=== PATIENT | male | born 1990 | race Caucasian/White ===

== ENCOUNTER 2019-03-29 16:26 | Emergency (ER) | payer OTHER ==
[2016-06-05 11:45] VITALS: BP 139/84
[2019-03-29] MEDS ORDERED: ONDANSETRON PF 4 MG/2 ML VIAL. IV ONE (17:00)
[2019-03-29] MEDS ORDERED: HYDROcodone/APAP 5/325MG 1 TAB TABLET PO ONE (17:00)
--- NOTE | 2019-03-29 21:58 | RAD ---
HAND LEFT 3V History: LEFT HAND PAIN AFTER FALL X4 DAYS AGO. No evidence of acute fracture. Joint spaces are intact. There is no evidence of dislocation. The lunate bone is small and fragmented, suggesting osteonecrosis or Kienbock's disease. There is ulnar minus. 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 No evidence of acute fracture or dislocation. Electronically signed by: Lupillo Samano MD (03/29/2019 9:55 PM) [facility]
== END 2019-03-29 18:55 | disposition home or self-care (01) ==
LOC: ER 16:26
DX: S62.122A Displaced fracture of lunate [semilunar], left wrist, initial encounter for closed fracture (principal); R06.2 Wheezing; R00.2 Palpitations; R30.0 Dysuria; R63.4 Abnormal weight loss; R35.0 Frequency of micturition; R51 Headache; R11.2 Nausea with vomiting, unspecified; R19.7 Diarrhea, unspecified; R06.02 Shortness of breath; R07.89 Other chest pain; R50.9 Fever, unspecified; X58.XXXA Exposure to other specified factors, initial encounter; Y93.89 Activity, other specified; Y92.89 Other specified places as the place of occurrence of the external cause; Y99.8 Other external cause status
CPT/HCPCS: 29125; 73130; 99284; J2405

== ENCOUNTER 2019-12-12 16:28 | Inpatient (IN) | payer SELFPAY ==
[~2019-12-12] VITALS: Ht 188 cm; Wt 115.7 kg
[2019-12-12 15:53] VITALS: BP 144/72
[2019-12-12] MEDS ORDERED: DEXTROSE 50% 25 GM / 50ML DISP.SYRIN. IV PRN (17:15)
[2019-12-12] MEDS ORDERED: IV DEXTROSE 5% 250 ML BAG. IV PRN (17:15)
[2019-12-12] MEDS ORDERED: ACETAMINOPHEN 325 MG TABLET. PO PRN (17:15)
[2019-12-12] MEDS ORDERED: ONDANSETRON PF 4 MG/2 ML VIAL. IVP PRN (17:15)
[2019-12-12] MEDS: NICOTINE 21MG PATCH. TD SCH (17:27)
[2019-12-12] MEDS ORDERED: glyBURIDE 5 MG TABLET PO SCH (17:30)
[2019-12-12] MEDS ORDERED: PIP/TAZO PER PHARMACY MC PRN (17:45)
[2019-12-12] MEDS: VANCOMYCIN PER PHARMACY MC PRN ×2 (17:48→17:55)
--- NOTE | 2019-12-12 17:51 | NUR ---
Pharmacy Vancomycin Dosing Note S:Consulted to monitor and dose vancomycin started 12/12/19. O:MIRELES IV,RADHA is a 29 year old M with Abd abscess. Height: 6 feet, 2 inches Weight: 115.7 kg Maxwell Body Weight: 82.20 Adjusted Body Weight: 95.72 Dosing Weight: Actual Other Antibiotics: zosyn LABS: Last BUN: 6 ([facility]) Last Creatinine: 0.7 ([facility]) Creatinine Clearance: >100 mL/min Last WBC: 11.8 ([facility]) Last Procalcitonin: Tmax (past 24 hours): 97.8 Vancomycin Dosing: Loading Dose: 2000 mg x1 Dosing Weight: Actual Target Trough: 15-20 A: Based on: weight and renal function P: 1. Begin Vancomycin 1500 mg IV q8h 2. Follow up Trough level on 12/13/19 at 2030 3. Pharmacy will continue to monitor, follow and adjust therapy as needed. Beatris Faye RPH, 12/12/19 0910
[2019-12-12] MEDS ORDERED: VANCOMYCIN 2 GM in IV NORMAL SALINE 500ML BAG 500 ML IV ONE (18:00)
[2019-12-12] MEDS ORDERED: INSULIN LISPRO 300 UNITS/3 ML VIAL. SQ SCH (18:00)
[2019-12-12] MEDS: metFORMIN 500 MG TABLET PO SCH (18:02)
[2019-12-12] MEDS: PIPERACILLIN/TAZOBACTAM 3.375 GM in IV NORMAL SALINE 50ML 50 ML IV SCH ×2 (18:03→23:56)
[2019-12-12 19:00] VITALS: BP 118/79
[2019-12-12] MEDS ORDERED: INSULIN GLARGINE SYRINGE. SQ SCH (21:00)
[2019-12-12] MEDS: LACTOBACILLUS RHAMNOSUS GG 1 CAPSULE. PO SCH (21:21)
[2019-12-12] MEDS: GABAPENTIN 300 MG CAPSULE. PO SCH (21:21)
[2019-12-12 23:00] VITALS: BP 137/81
[2019-12-13] MEDS: HYDROcodone/APAP 5/325MG 1 TAB TABLET PO PRN ×4 (00:01→23:13)
[2019-12-13 03:00] VITALS: BP 122/80
[2019-12-13] MEDS: VANCOMYCIN 1.5 GM in IV NORMAL SALINE 500ML BAG 500 ML IV SCH ×2 (04:12→15:16)
[2019-12-13 05:11] LABS: BASO % 0 % (0-3); EOS # 0.2 x10^3/uL (0.0-0.7); EOS % 2 % (0-3); HEMATOCRIT 46.2 % (39.0-53.0); HEMOGLOBIN 15.5 g/dL (13.0-17.5); LYMPH # 3.8 x10^3/uL (1.0-4.8); LYMPH % 35 % (24-48); MEAN CORPUSCULAR HEMOGLOBIN 29 pg (25-35); MEAN CORPUSCULAR HGB CONC 34 g/dL (31-37); MEAN CORPUSCULAR VOLUME 88 fL (79-100); MONO # 0.8 x10^3/uL (0.0-1.1); MONO % 7 % (0-9); NEUT % 55 % (31-73); PLATELET COUNT 272 x10^3/uL (140-400); RED BLOOD COUNT 5.27 x10^6/uL (4.30-5.70); RED CELL DISTRIBUTION WIDTH 13.4 % (11.5-14.5); WHITE BLOOD COUNT 10.8 x10^3/uL (4.0-11.0)
[2019-12-13 05:40] LABS: ALBUMIN 2.9 g/dL (3.4-5.0); ALBUMIN/GLOBULIN RATIO 0.8 (1.0-1.7); CREATININE 0.6 mg/dL (0.7-1.3); GFR 157.1; POTASSIUM 3.2 mmol/L (3.5-5.1); TOTAL BILIRUBIN 0.4 mg/dL (0.2-1.0); TOTAL PROTEIN 6.5 g/dL (6.4-8.2)
[2019-12-13] MEDS: PIPERACILLIN/TAZOBACTAM 3.375 GM in IV NORMAL SALINE 50ML 50 ML IV SCH ×3 (06:08→17:31)
[2019-12-13 07:00] VITALS: BP 125/77
[2019-12-13] MEDS ORDERED: INSULIN GLARGINE SYRINGE. SQ SCH (08:00)
[2019-12-13] MEDS: metFORMIN 500 MG TABLET PO SCH ×2 (08:00→17:04)
[2019-12-13] MEDS ORDERED: DEXTROSE 50% 25 GM / 50ML DISP.SYRIN. IV PRN (08:30)
[2019-12-13] MEDS ORDERED: POTASSIUM CHLORIDE 20 MEQ TABLET.ER. PO ONE (08:30)
[2019-12-13] MEDS ORDERED: IV DEXTROSE 5% 250 ML BAG. IV PRN (08:30)
--- NOTE | 2019-12-13 08:33 | PDOC2 ---
PRABUH PERRY PHARM TECH 12/13/19 0833: CONSULT Date of Consult Date of Consult DATE: 12/13/19 TIME: 08:28 Reason for Consult Reason for Consult: abscess Referring Physician Referring Physician: Dr Major Identification/Chief Complaint Chief Complaint abscess Source Source: Chart review, Patient History of Present Illness Reason for Visit: Admitted at [facility] with DKA--required insulin drip. New onset DM in last few week s. With all of that he has had a draining abdominal wound start. It will drain intermittently. While at [facility] US showed abscess. Tx for surgical eval Past Medical History Endocrine: Diabetes Past Surgical History Past Surgical History: No pertinent history Family History Family History: Cancer, Hypertension Social History 1 pack per day ALCOHOL: occassional Drugs: Marijuana Lives: Alone Current Medications Current Medications Current Medications Insulin Glargine (Lantus Syringe) 20 unit QHS SQ Last administered on 12/12/19at 21:30; Start 12/12/19 at 21:00 Insulin Human Lispro (HumaLOG) 0-5 UNITS TIDWMEALS SQ Last administered on 12/12/19at 18:47; Start 12/12/19 at 18:00 Dextrose (Dextrose 50%-Water Syringe) 12.5 gm PRN Q15MIN PRN IV SEE COMMENTS; Start 12/12/19 at 17:15 Dextrose (Iv Dextrose 5%) 250 ml PRN Q15MIN PRN IV SEE COMMENTS; Start 12/12/19 at 17:15 Gabapentin (Neurontin) 300 mg TID PO Last administered on 12/12/19at 21:21; Start 12/12/19 at 21:00 Acetaminophen/ Hydrocodone Bitart (Lortab 5/325) 1 tab PRN Q6HRS PRN PO MODERATE PAIN Last administered on 12/13/19at 00:01; Start 12/12/19 at 17:15 Insulin Glargine (Lantus Syringe) 10 unit DAILY08 SQ ; Start 12/13/19 at 08:00 Lactobacillus Rhamnosus (Culturelle) 1 cap BID PO Last administered on 12/12/19at 21:21; Start 12/12/19 at 21:00 Nicotine (Nicoderm Cq 21mg) 1 patch DAILY TD ; Start 12/12/19 at 17:30 Glyburide (Diabeta) 5 mg BIDWMEALS PO Last administered on 12/12/19at 18:02; Start 12/12/19 at 17:30 Metformin HCl (Glucophage) 500 mg BIDWMEALS PO Last administered on 12/12/19at 18:02; Start 12/12/19 at 17:30 Acetaminophen (Tylenol) 650 mg PRN Q4HRS PRN PO MILD PAIN / TEMP; Start 12/12 at 17:15 Ondansetron HCl (Zofran) 4 mg PRN Q4HRS PRN IVP NAUSEA/VOMITING; Start 12/12/19 at 17:15 Piperacillin Sod/ Tazobactam Sod 3.375 gm/Sodium Chloride 50 ml @ 100 mls/hr Q6HRS IV Last administered on 12/13/19at 06:08; Start 12/12/19 at 18:00 Piperacillin Sod/ Tazobactam Sod (Zosyn Per Pharmacy) 1 each PRN DAILY PRN MC SEE COMMENTS; Start 12/12/19 at 17:45 Vancomycin HCl (Vanco Per Pharmacy) 1 each PRN DAILY PRN MC SEE COMMENTS Last administered on 12/12/19at 17:55; Start 12/12/19 at 17:45 Vancomycin HCl 2 gm/Sodium Chloride 500 ml @ 250 mls/hr 1X ONCE IV Last administered on 12/12/19at 18:05; Start 12/12/19 at 18:00; Stop 12/12/19 at 19:59; Status DC Vancomycin HCl 1.5 gm/Sodium Chloride 500 ml @ 250 mls/hr Q8H IV Last administered on 12/13/19at 04:12; Start 12/13/19 at 05:00 Vancomycin HCl (Vancomycin Trough Level) 1 each 1X ONCE MC ; Start 12/13/19 at 20:30; Stop 12/13/19 at 20:31 Active Scripts Active No Active Prescriptions or Reported Medications Allergies Allergies: Coded Allergies: No Known Drug Allergies (Unverified , 12/13/19) ROS General: No: Chills, Other (fevers ) PSYCHOLOGICAL ROS: No: Anxiety, Depression Eyes: No Blurry vision, No Loss of vision Hematological and Lymphatic: No: Bleeding Problems, Blood Clots Respiratory: No: Cough, Shortness of breath Cardiovascular: No Chest Pain, No Palpitations Gastrointestinal: No Nausea, No Vomiting Genitourinary: No Dysuria, No Hematuria Musculoskeletal: No Joint Pain, No Muscle Pain Neurological: No Impaired Coord/balance, No Numbness/Tingling Skin: Yes Other (see hpi) Physical Exam General: Alert, Oriented X3, Cooperative HEENT: Atraumatic, PERRLA Lungs: Clear to auscultation, Normal air movement Heart: Regular rate, Normal S1, Normal S2 Abdomen: Soft, Other (noted lower abdomen with pinpoint opening, area of induration palpated and able to express purulent drainage, tender to palpation ) Extremities: No clubbing, No cyanosis Neuro: Normal speech, Sensation intact Psych/Mental Status: Mental status NL, Mood NL MUSCULOSKELETAL: No deformity, No swelling Vitals VITALS Vital Signs Date Time Temp Pulse Resp B/P (MAP) Pulse Ox O2 Delivery O2 Flow Rate FiO2 12/13/19 07:00 98.0 77 17 125/77 (93) 99 Room Air 98.0 Labs Labs Laboratory Tests Test 12/12/19 16:06 12/12/19 20:36 12/13/19 04:20 12/13/19 07:29 Glucose (Fingerstick) 279 mg/dL (70-99) 296 mg/dL (70-99) 280 mg/dL (70-99) White Blood Count 10.8 x10^3/uL (4.0-11.0) Red Blood Count 5.27 x10^6/uL (4.30-5.70) Hemoglobin 15.5 g/dL (13.0-17.5) Hematocrit 46.2 % (39.0-53.0) Mean Corpuscular Volume 88 fL (79-100) Mean Corpuscular Hemoglobin 29 pg (25-35) Mean Corpuscular Hemoglobin Concent 34 g/dL (31-37) Red Cell Distribution Width 13.4 % (11.5-14.5) Platelet Count 272 x10^3/uL (140-400) Neutrophils (%) (Auto) 55 % (31-73) Lymphocytes (%) (Auto) 35 % (24-48) Monocytes (%) (Auto) 7 % (0-9) Eosinophils (%) (Auto) 2 % (0-3) Basophils (%) (Auto) 0 % (0-3) Neutrophils # (Auto) 6.0 x10^3/uL (1.8-7.7) Lymphocytes # (Auto) 3.8 x10^3/uL (1.0-4.8) Monocytes # (Auto) 0.8 x10^3/uL (0.0-1.1) Eosinophils # (Auto) 0.2 x10^3/uL (0.0-0.7) Basophils # (Auto) 0.0 x10^3/uL (0.0-0.2) Sodium Level 139 mmol/L (136-145) Potassium Level 3.2 mmol/L (3.5-5.1) Chloride Level 100 mmol/L (98-107) Carbon Dioxide Level 30 mmol/L (21-32) Anion Gap 9 (6-14) Blood Urea Nitrogen 9 mg/dL (8-26) Creatinine 0.6 mg/dL (0.7-1.3) Estimated GFR (Cockcroft-Gault) 157.1 BUN/Creatinine Ratio 15 (6-20) Glucose Level 290 mg/dL (70-99) Calcium Level 9.0 mg/dL (8.5-10.1) Total Bilirubin 0.4 mg/dL (0.2-1.0) Aspartate Amino Transf (AST/SGOT) 9 U/L (15-37) Alanine Aminotransferase (ALT/SGPT) 12 U/L (16-63) Alkaline Phosphatase 85 U/L (46-116) Total Protein 6.5 g/dL (6.4-8.2) Albumin 2.9 g/dL (3.4-5.0) Albumin/Globulin Ratio 0.8 (1.0-1.7) Laboratory Tests Test 12/12/19 16:06 12/12/19 20:36 12/13/19 04:20 12/13/19 07:29 Glucose (Fingerstick) 279 mg/dL (70-99) 296 mg/dL (70-99) 280 mg/dL (70-99) White Blood Count 10.8 x10^3/uL (4.0-11.0) Red Blood Count 5.27 x10^6/uL (4.30-5.70) Hemoglobin 15.5 g/dL (13.0-17.5) Hematocrit 46.2 % (39.0-53.0) Mean Corpuscular Volume 88 fL (79-100) Mean Corpuscular Hemoglobin 29 pg (25-35) Mean Corpuscular Hemoglobin Concent 34 g/dL (31-37) Red Cell Distribution Width 13.4 % (11.5-14.5) Platelet Count 272 x10^3/uL (140-400) Neutrophils (%) (Auto) 55 % (31-73) Lymphocytes (%) (Auto) 35 % (24-48) Monocytes (%) (Auto) 7 % (0-9) Eosinophils (%) (Auto) 2 % (0-3) Basophils (%) (Auto) 0 % (0-3) Neutrophils # (Auto) 6.0 x10^3/uL (1.8-7.7) Lymphocytes # (Auto) 3.8 x10^3/uL (1.0-4.8) Monocytes # (Auto) 0.8 x10^3/uL (0.0-1.1) Eosinophils # (Auto) 0.2 x10^3/uL (0.0-0.7) Basophils # (Auto) 0.0 x10^3/uL (0.0-0.2) Sodium Level 139 mmol/L (136-145) Potassium Level 3.2 mmol/L (3.5-5.1) Chloride Level 100 mmol/L (98-107) Carbon Dioxide Level 30 mmol/L (21-32) Anion Gap 9 (6-14) Blood Urea Nitrogen 9 mg/dL (8-26) Creatinine 0.6 mg/dL (0.7-1.3) Estimated GFR (Cockcroft-Gault) 157.1 BUN/Creatinine Ratio 15 (6-20) Glucose Level 290 mg/dL (70-99) Calcium Level 9.0 mg/dL (8.5-10.1) Total Bilirubin 0.4 mg/dL (0.2-1.0) Aspartate Amino Transf (AST/SGOT) 9 U/L (15-37) Alanine Aminotransferase (ALT/SGPT) 12 U/L (16-63) Alkaline Phosphatase 85 U/L (46-116) Total Protein 6.5 g/dL (6.4-8.2) Albumin 2.9 g/dL (3.4-5.0) Albumin/Globulin Ratio 0.8 (1.0-1.7) Assessment/Plan Assessment/Plan abdominal abscess DM will review with Dr Barnhart--appears to need formal I&D in OR LINDA BARNHART MD 12/13/19 1227: CONSULT Assessment/Plan Assessment/Plan Pt seen and examined by myself; newly diagnosed diabetes, treated at [facility], detected lower abdominal wall abscess; he reports having them in the past but never as extensive. PMH/PSH/ROS/SH as above; exam: alert, oriented, multiple tattoos, lungs clear, heart RR and R, abdomen obese, area of induration, drainage in LLQ, ext without deformity or edema. A/P) LLQ subQ abscess, plan for I and D in the OR. PRABHU PERRY APRN Dec 13, 2019 08:33 LINDA BARNHART MD Dec 13, 2019 15:57
[2019-12-13] MEDS: INSULIN LISPRO 300 UNITS/3 ML VIAL. SQ SCH ×5 (08:45→17:09)
[2019-12-13] MEDS ORDERED: INSULIN GLARGINE SYRINGE. SQ ONE (08:45)
[2019-12-13] MEDS: GABAPENTIN 300 MG CAPSULE. PO SCH ×3 (09:00→20:33)
[2019-12-13] MEDS: LACTOBACILLUS RHAMNOSUS GG 1 CAPSULE. PO SCH ×2 (09:00→20:33)
[2019-12-13] MEDS ORDERED: IV RINGERS,LACTATED 1000ML 1,000 ML IV SCH (09:03)
[2019-12-13] MEDS ORDERED: fentaNYL PF VIAL 100 MCG/2 ML VIAL IV PRN (09:15)
[2019-12-13] MEDS ORDERED: ONDANSETRON PF 4 MG/2 ML VIAL. IV PRN (09:15)
[2019-12-13] MEDS ORDERED: HYDROmorphone 2 MG/ML VIAL IV PRN (09:15)
[2019-12-13 11:01] VITALS: BP 128/74
--- NOTE | 2019-12-13 11:19 | CONS ---
DATE OF CONSULTATION: 12/13/2019 REFERRING PHYSICIAN: Licha Major MD REASON FOR CONSULTATION: Abscess. HISTORY OF PRESENT ILLNESS: A 29-year-old male who presented to [facility] on 12/10/2019 with increased urinary frequency, thirst and dizziness. He presented from his primary care office where he was found to have high blood sugar at the office. He is newly diagnosed with diabetes. He also had multiple boils along the lower abdomen. He had leukocytosis. Blood sugars were very elevated with glycosuria. Lactate was normal. He denied any fevers or chills. He denied being on any antibiotics prior to admission. He was given Keflex, vancomycin and a dose of Zosyn. He underwent ultrasound of the abdomen, which showed nonspecific complex collection in the area of concern would correspond with clinically suspected abscess and sinus tract about a 4.1 x 3.4 x 2.5 cm in size. The patient is transferred to [facility] for surgical intervention. He is currently on vancomycin and Zosyn. ID consult has been requested for antibiotic management. Repeat white count is normal here. Blood sugar still remains high. Creatinine has normalized to 0.6 with normal bicarbonate. Blood cultures were done at [facility], which are pending at this time. Today, the patient is going for surgical I and D. He denies any fevers, chills, nausea, vomiting, diarrhea, or abdominal pain. Denies any symptoms. Feels he is getting better. PAST MEDICAL HISTORY: Newly diagnosed diabetes. CURRENT MEDICATIONS: Vancomycin and Zosyn, reviewed. ALLERGIES: No known drug allergies. SOCIAL HISTORY: Denies smoking, ETOH. Works as a logging truck driver. Denies any drug use. PHYSICAL EXAMINATION: VITAL SIGNS: Temperature 98.6, pulse 88, respiratory rate 18, blood pressure 137/81, oxygen saturation 97% on room air. GENERAL: Alert and oriented x 3, pleasant male lying in bed comfortably, in no acute distress. HEENT: Normocephalic, atraumatic. Anicteric. No thrush. NECK: Supple, no JVD. LUNGS: Clear bilaterally. No wheezing. HEART: S1, S2. No gallops or murmurs. ABDOMEN: Soft, nontender, nondistended. No rebound or guarding. Suprapubic area, there is an area of induration with 2 sinus tracts. No purulence noted. Tenderness present. No overlying warmth. No surrounding cellulitis. EXTREMITIES: No edema, no cyanosis. DERMATOLOGIC: Warm and dry. No generalized rash. Multiple tattoos in both upper and lower extremities. No other skin wounds noted. CENTRAL NERVOUS SYSTEM: Alert and oriented x 3, grossly nonfocal. LABORATORY DATA: WBC 10.8, was 17,000; hemoglobin 15.5; hematocrit 46.2; platelets 272. Sodium 139, potassium 3.2, chloride 100, bicarb 30, BUN 9, creatinine 0.6. Glucose is 290. LFTs within normal limits. Albumin 2.9. Blood cultures, none here. ESR is pending at this time. IMAGING: None here. Ultrasound from [facility] shows abscess. IMPRESSION: 1. Draining abdominal wound with underlying abscess, awaiting I and D. 2. Diabetes mellitus, newly diagnosed. 3. Leukocytosis. 4. Hyperglycemia. 5. Hypokalemia. RECOMMENDATIONS: 1. Continue IV vancomycin and Zosyn. 2. Follow up blood cultures from [facility]. 3. Send intraoperative cultures. 4. Follow up labs in a.m. 5. Continue supportive care. 6. Wound care per General Surgery. 7. Optimal diabetes control. Thank you for consulting Infectious Disease to participate in this patient's care. If you have any questions, do not hesitate to contact me. KRYSTAL ABDALLA MD DR: XVAIER/verena JOB#: [id number] / [id number] MARTA
--- NOTE | 2019-12-13 11:32 | NUR ---
SW following. Discussed with RN, pt is from home, I & D today, DIANE haywood and rob. [facility] following for self pay status. SW will continue to follow.
[2019-12-13] MEDS ORDERED: ONDANSETRON PF 4 MG/2 ML VIAL. ONE (11:48)
[2019-12-13] MEDS ORDERED: LIDOCAINE 2% PF 5 ML VIAL. ONE (11:48)
[2019-12-13] MEDS ORDERED: DEXAMETHASONE SOD PHOS 4 MG/ML VIAL ONE (11:48)
[2019-12-13] MEDS ORDERED: PROPOFOL 20 ML IV ONE ×2 (11:48→13:50)
[2019-12-13] MEDS ORDERED: fentaNYL PF VIAL 100 MCG/2 ML VIAL ONE ×2 (11:49→14:02)
[2019-12-13 12:06] LABS: PROTHROMBIN TIME PATIENT 12.5 SEC (11.7-14.0)
[2019-12-13] MEDS: VANCOMYCIN PER PHARMACY MC PRN ×2 (12:28→22:33)
[2019-12-13] MEDS ORDERED: LIDOCAINE 1%/EPI 1:100,000 20 ML VIAL. ONE (13:16)
--- NOTE | 2019-12-13 13:25 | PDOC1 ---
History and Physical Date of Admission Date of Admission DATE: 12/13/19 TIME: 13:21 Identification/Chief Complaint Chief Complaint transfer from [facility] [place] abscess that has a sinus tract Source Source: Caregiver, Chart review, Patient History of Present Illness History of Present Illness 29 male, dw Dr Caldwell over phone, transferred from [facility] with sinus tract formation, HE was admitted there 3-4days ago (thursday), getting IV abx but interval CT shows the above so transferred here for GS, ID also consulted HE ALSO IS A NEW DM, with BS > 600s at [place] on arrival,. Thats is much better controlled now Seen by GS and mentions more drainage plans tmr by GS BAseline labs show normal WBC and afebrile Past Medical History Cardiovascular: No pertinent hx Pulmonary: No pertinent hx GI: No pertinent hx Heme/Onc: No pertinent hx Hepatobiliary: No pertinent hx Psych: No pertinent hx Rheumatologic: No pertinent hx Infectious disease: No pertinent hx ENT: No pertinent hx Endocrine: Diabetes Past Surgical History Past Surgical History: No pertinent history Family History Family History: Cancer, Hypertension Social History Smoke: 1 pack per day ALCOHOL: occassional Drugs: Marijuana Current Medications Current Medications Current Medications Insulin Glargine (Lantus Syringe) 20 unit QHS SQ Last administered on 12/12/19at 21:30; Start 12/12/19 at 21:00; Stop 12/13/19 at 08:29; Status DC Insulin Human Lispro (HumaLOG) 0-5 UNITS TIDWMEALS SQ Last administered on 12/12/19at 18:47; Start 12/12/19 at 18:00; Stop 12/13/19 at 08:29; Status DC Dextrose (Dextrose 50%-Water Syringe) 12.5 gm PRN Q15MIN PRN IV SEE COMMENTS; Start 12/12/19 at 17:15; Stop 12/13/19 at 12:19; Status DC Dextrose (Iv Dextrose 5%) 250 ml PRN Q15MIN PRN IV SEE COMMENTS; Start 12/12/19 at 17:15; Stop 12/13/19 at 12:19; Status DC Gabapentin (Neurontin) 300 mg TID PO Last administered on 12/12/19at 21:21; Start 12/12/19 at 21:00 Acetaminophen/ Hydrocodone Bitart (Lortab 5/325) 1 tab PRN Q6HRS PRN PO MODERATE PAIN Last administered on 12/13/19at 09:42; Start 12/12/19 at 17:15 Insulin Glargine (Lantus Syringe) 10 unit DAILY08 SQ ; Start 12/13/19 at 08:00; Stop 12/13/19 at 08:29; Status DC Lactobacillus Rhamnosus (Culturelle) 1 cap BID PO Last administered on 12/12/19at 21:21; Start 12/12/19 at 21:00 Nicotine (Nicoderm Cq 21mg) 1 patch DAILY TD ; Start 12/12/19 at 17:30 Glyburide (Diabeta) 5 mg BIDWMEALS PO Last administered on 12/12/19at 18:02; Start 12/12/19 at 17:30; Stop 12/13/19 at 08:29; Status DC Metformin HCl (Glucophage) 500 mg BIDWMEALS PO Last administered on 12/12/19at 18:02; Start 12/12/19 at 17:30 Acetaminophen (Tylenol) 650 mg PRN Q4HRS PRN PO MILD PAIN / TEMP; Start 12/12/19 at 17:15 Ondansetron HCl (Zofran) 4 mg PRN Q4HRS PRN IVP NAUSEA/VOMITING; Start 12/12/19 at 17:15 Piperacillin Sod/ Tazobactam Sod 3.375 gm/Sodium Chloride 50 ml @ 100 mls/hr Q6HRS IV Last administered on 12/13/19at 06:08; Start 12/12/19 at 18:00 Piperacillin Sod/ Tazobactam Sod (Zosyn Per Pharmacy) 1 each PRN DAILY PRN MC SEE COMMENTS; Start 12/12/19 at 17:45 Vancomycin HCl (Vanco Per Pharmacy) 1 each PRN DAILY PRN MC SEE COMMENTS Last administered on 12/13/19at 12:28; Start 12/12/19 at 17:45 Vancomycin HCl 2 gm/Sodium Chloride 500 ml @ 250 mls/hr 1X ONCE IV Last administered on 12/12/19at 18:05; Start 12/12/19 at 18:00; Stop 12/12/19 at 19:59; Status DC Vancomycin HCl 1.5 gm/Sodium Chloride 500 ml @ 250 mls/hr Q8H IV Last administered on 12/13/19at 04:12; Start 12/13/19 at 05:00 Vancomycin HCl (Vancomycin Trough Level) 1 each 1X ONCE MC ; Start 12/13/19 at 20:30; Stop 12/13/19 at 20:31 Insulin Glargine (Lantus Syringe) 30 unit QHS SQ ; Start 12/14/19 at 21:00 Insulin Human Lispro (HumaLOG) 0-9 UNITS TIDWMEALS SQ Last administered on 12/13/19at 12:52; Start 12/13/19 at 12:00 Dextrose (Dextrose 50%-Water Syringe) 12.5 gm PRN Q15MIN PRN IV SEE COMMENTS; Start 12/13/19 at 08:30 Dextrose (Iv Dextrose 5%) 250 ml PRN Q15MIN PRN IV SEE COMMENTS; Start 12/13/19 at 08:30 Potassium Chloride (Klor-Con) 40 meq 1X ONCE PO ; Start 12/13/19 at 08:30; Stop 12/13/19 at 08:33; Status DC Insulin Human Lispro (HumaLOG) 10 units TIDWMEALS SQ ; Start 12/13/19 at 08:45 Insulin Glargine (Lantus Syringe) 30 unit 1X ONCE SQ Last administered on 12/13/19at 09:47; Start 12/13/19 at 08:45; Stop 12/13/19 at 08:46; Status DC Ondansetron HCl (Zofran) 4 mg PRN Q6HRS PRN IV NAUSEA/VOMITING; Start 12/13/19 at 09:15; Stop 12/14/19 at 09:14 Fentanyl Citrate (Fentanyl 2ml Vial) 25 mcg PRN Q5MIN PRN IV MILD PAIN 1-3; Start 12/13/19 at 09:15; Stop 12/14/19 at 09:14 Fentanyl Citrate (Fentanyl 2ml Vial) 50 mcg PRN Q5MIN PRN IV MODERATE TO SEVERE PAIN; Start 12/13/19 at 09:15; Stop 12/14/19 at 09:14 Morphine Sulfate (Morphine Sulfate) 1 mg PRN Q10MIN PRN IV SEVERE PAIN 7-10; Start 12/13/19 at 09:15; Stop 12/14/19 at 09:14 Ringer's Solution 1,000 ml @ 30 mls/hr Q24H IV Last administered on 12/13/19at 11:29; Start 12/13/19 at 09:03; Stop 12/13/19 at 21:02 Hydromorphone HCl (Dilaudid) 0.5 mg PRN Q10MIN PRN IV SEV PAIN, Second choice; Start 12/13/19 at 09:15; Stop 12/14/19 at 09:14 Prochlorperazine Edisylate (Compazine) 5 mg PACU PRN PRN IV NAUSEA, MRX1; Sta rt 12/13/19 at 09:15; Stop 12/14/19 at 09:14 Propofol 20 ml @ As Directed STK-MED ONCE IV ; Start 12/13/19 at 11:48; Stop 12/13/19 at 11:49; Status DC Lidocaine HCl (Lidocaine Pf 2% Vial) 5 ml STK-MED ONCE .ROUTE ; Start 12/13/19 at 11:48; Stop 12/13/19 at 11:49; Status DC Dexamethasone Sodium Phosphate (Decadron) 4 mg STK-MED ONCE .ROUTE ; Start 12/13/19 at 11:48; Stop 12/13/19 at 11:49; Status DC Ondansetron HCl (Zofran) 4 mg STK-MED ONCE .ROUTE ; Start 12/13/19 at 11:48; Stop 12/13/19 at 11:49; Status DC Fentanyl Citrate (Fentanyl 2ml Vial) 100 mcg STK-MED ONCE .ROUTE ; Start 12/13/19 at 11:49; Stop 12/13/19 at 11:49; Status DC Lidocaine/ Epinephrine (LIDOCAINE 1%-EPI 1:100,000 Multi-Dose) 20 ml STK-MED ONCE .ROUTE ; Start 12/13/19 at 13:16; Stop 12/13/19 at 13:17; Status DC Active Scripts Active No Active Prescriptions or Reported Medications Allergies Allergies: Coded Allergies: No Known Drug Allergies (Unverified , 06/03/16) ROS Review of System moderate lower abd dc, all esle 14 pt neg no efvers Physical Exam General: Alert, Oriented X3, Cooperative, No acute distress HEENT: Atraumatic, PERRLA, EOMI Lungs: Clear to auscultation, Normal air movement Heart: S1S2, RRR, no thrills, no rubs, no gallops, no murmurs Cardiovascular: S1, S2 Abdomen: Soft, No tenderness, No hepatosplenomegaly, Other (wet dressing lower abd area but no /hard to see open skin lesion, nontender, not distended) Rectal Exam: not examined PELVIC: Nml ext genitalia Extremities: No clubbing, No cyanosis, No edema, Normal pulses, No tenderness/swelling Skin: No rashes Neuro: Normal gait, Normal speech, Strength at 5/5 X4 ext, Normal tone, Sensation intact, Cranial nerves 3-12 NL, Reflexes 2+ Psych/Mental Status: Mental status NL, Mood NL Vitals Vitals Vital Signs Date Time Temp Pulse Resp B/P (MAP) Pulse Ox O2 Delivery O2 Flow Rate FiO2 12/13/19 11:11 98 89 18 130/80 95 Room Air 98.0 Labs Labs Laboratory Tests Test 12/12/19 16:06 12/12/19 20:36 12/13/19 04:20 12/13/19 07:29 Glucose (Fingerstick) 279 mg/dL (70-99) 296 mg/dL (70-99) 280 mg/dL (70-99) White Blood Count 10.8 x10^3/uL (4.0-11.0) Red Blood Count 5.27 x10^6/uL (4.30-5.70) Hemoglobin 15.5 g/dL (13.0-17.5) Hematocrit 46.2 % (39.0-53.0) Mean Corpuscular Volume 88 fL (79-100) Mean Corpuscular Hemoglobin 29 pg (25-35) Mean Corpuscular Hemoglobin Concent 34 g/dL (31-37) Red Cell Distribution Width 13.4 % (11.5-14.5) Platelet Count 272 x10^3/uL (140-400) Neutrophils (%) (Auto) 55 % (31-73) Lymphocytes (%) (Auto) 35 % (24-48) Monocytes (%) (Auto) 7 % (0-9) Eosinophils (%) (Auto) 2 % (0-3) Basophils (%) (Auto) 0 % (0-3) Neutrophils # (Auto) 6.0 x10^3/uL (1.8-7.7) Lymphocytes # (Auto) 3.8 x10^3/uL (1.0-4.8) Monocytes # (Auto) 0.8 x10^3/uL (0.0-1.1) Eosinophils # (Auto) 0.2 x10^3/uL (0.0-0.7) Basophils # (Auto) 0.0 x10^3/uL (0.0-0.2) Sodium Level 139 mmol/L (136-145) Potassium Level 3.2 mmol/L (3.5-5.1) Chloride Level 100 mmol/L (98-107) Carbon Dioxide Level 30 mmol/L (21-32) Anion Gap 9 (6-14) Blood Urea Nitrogen 9 mg/dL (8-26) Creatinine 0.6 mg/dL (0.7-1.3) Estimated GFR (Cockcroft-Gault) 157.1 BUN/Creatinine Ratio 15 (6-20) Glucose Level 290 mg/dL (70-99) Calcium Level 9.0 mg/dL (8.5-10.1) Total Bilirubin 0.4 mg/dL (0.2-1.0) Aspartate Amino Transf (AST/SGOT) 9 U/L (15-37) Alanine Aminotransferase (ALT/SGPT) 12 U/L (16-63) Alkaline Phosphatase 85 U/L (46-116) Total Protein 6.5 g/dL (6.4-8.2) Albumin 2.9 g/dL (3.4-5.0) Albumin/Globulin Ratio 0.8 (1.0-1.7) Test 12/13/19 10:25 12/13/19 11:36 12/13/19 12:41 12/13/19 12:47 Prothrombin Time 12.5 SEC (11.7-14.0) Prothromb Time International Ratio 1.0 (0.8-1.1) Glucose (Fingerstick) 265 mg/dL (70-99) 288 mg/dL (70-99) 283 mg/dL (70-99) Laboratory Tests Test 12/12/19 16:06 12/12/19 20:36 12/13/19 04:20 12/13/19 07:29 Glucose (Fingerstick) 279 mg/dL (70-99) 296 mg/dL (70-99) 280 mg/dL (70-99) White Blood Count 10.8 x10^3/uL (4.0-11.0) Red Blood Count 5.27 x10^6/uL (4.30-5.70) Hemoglobin 15.5 g/dL (13.0-17.5) Hematocrit 46.2 % (39.0-53.0) Mean Corpuscular Volume 88 fL (79-100) Mean Corpuscular Hemoglobin 29 pg (25-35) Mean Corpuscular Hemoglobin Concent 34 g/dL (31-37) Red Cell Distribution Width 13.4 % (11.5-14.5) Platelet Count 272 x10^3/uL (140-400) Neutrophils (%) (Auto) 55 % (31-73) Lymphocytes (%) (Auto) 35 % (24-48) Monocytes (%) (Auto) 7 % (0-9) Eosinophils (%) (Auto) 2 % (0-3) Basophils (%) (Auto) 0 % (0-3) Neutrophils # (Auto) 6.0 x10^3/uL (1.8-7.7) Lymphocytes # (Auto) 3.8 x10^3/uL (1.0-4.8) Monocytes # (Auto) 0.8 x10^3/uL (0.0-1.1) Eosinophils # (Auto) 0.2 x10^3/uL (0.0-0.7) Basophils # (Auto) 0.0 x10^3/uL (0.0-0.2) Sodium Level 139 mmol/L (136-145) Potassium Level 3.2 mmol/L (3.5-5.1) Chloride Level 100 mmol/L (98-107) Carbon Dioxide Level 30 mmol/L (21-32) Anion Gap 9 (6-14) Blood Urea Nitrogen 9 mg/dL (8-26) Creatinine 0.6 mg/dL (0.7-1.3) Estimated GFR (Cockcroft-Gault) 157.1 BUN/Creatinine Ratio 15 (6-20) Glucose Level 290 mg/dL (70-99) Calcium Level 9.0 mg/dL (8.5-10.1) Total Bilirubin 0.4 mg/dL (0.2-1.0) Aspartate Amino Transf (AST/SGOT) 9 U/L (15-37) Alanine Aminotransferase (ALT/SGPT) 12 U/L (16-63) Alkaline Phosphatase 85 U/L (46-116) Total Protein 6.5 g/dL (6.4-8.2) Albumin 2.9 g/dL (3.4-5.0) Albumin/Globulin Ratio 0.8 (1.0-1.7) Test 12/13/19 10:25 12/13/19 11:36 12/13/19 12:41 12/13/19 12:47 Prothrombin Time 12.5 SEC (11.7-14.0) Prothromb Time International Ratio 1.0 (0.8-1.1) Glucose (Fingerstick) 265 mg/dL (70-99) 288 mg/dL (70-99) 283 mg/dL (70-99) VTE Prophylaxis Ordered VTE Prophylaxis Devices: Yes VTE Pharmacological Prophylaxi: Yes Assessment/Plan Assessment/Plan abd abscess with sinus tract formation NEw DM PLAn: See my orders re insulin regimen - 30 qhs, 10 TID plus metformin Check hgba1c DM education NPO post MN, surgical drrainge plans by GS tmr COnsult ID Add esr Add PT.INR ADA diet today ANGEL SHELTON MD Dec 13, 2019 13:25
[2019-12-13] MEDS ORDERED: SEVOFLURANE 31 TO 60 MINUTES. IH ONE (14:05)
[2019-12-13] MEDS: fentaNYL PF VIAL 100 MCG/2 ML VIAL IV PRN ×2 (14:34→15:03)
[2019-12-13] MEDS ORDERED: INSULIN LISPRO 100 UNIT/ML 3ML VIAL for OP,RR ONLY. SQ PRN (14:45)
[2019-12-13] MEDS ORDERED: MORPHINE SULFATE 4 MG/ML VIAL. IV ONE (14:45)
[2019-12-13] MEDS: PROCHLORPERAZINE 10 MG/2 ML VIAL. IV PRN ×2 (14:47→15:02)
[2019-12-13] MEDS: MORPHINE SULFATE 2 MG/ML VIAL. IV PRN ×2 (15:29→15:52)
--- NOTE | 2019-12-13 16:01 | PDOC4 ---
Operative Note Operative Note Operative Note: Preoperative Diagnosis: Left lower quadrant abdominal abscess Postoperative Diagnosis: Same Procedure: Incision and drainage of left lower quadrant abscess Surgeon: Obey Anesthesia: Gen. EBL: 10 mL Specimen: Cultures to microbiology Drains: None Complications: None Indication: The patient is a 29-year-old male who was recently diagnosed with diabetes. He was found on examination to have a left lower quadrant abscess. He was will require incision and drainage in the operating room. The risks of surgery were discussed which include bleeding, infection, recurrence, pain, scar tissue, anesthetic risk, potential need for additional surgery or procedure. He understands and would like to proceed. Description: The patient was taken to the operating room and placed supine on the operating table. Gen. anesthesia was performed. The abdomen was prepped with ChloraPrep and draped in a standard surgical manner. An incision was made in the skin with the scalpel overlying the fluctuant area. There was immediate return of purulent fluid. Cultures were obtained and sent to microbiology. Incision was extended to facilitate drainage. The abscess cavity was then digitally probed to free up any loculations. The entire base was then irrigated with sterile saline. Hemostasis was achieved with cautery. The wound was then packed with sterile gauze and a dressing was applied. The patient tolerated the procedure well and was sent to the recovery room in stable condition. At the end of the case all counts were correct. LINDA HARRINGTON MD Dec 13, 2019 16:00
[2019-12-13] MEDS: NICOTINE 21MG PATCH. TD SCH (17:04)
[2019-12-13 19:00] VITALS: BP 134/86
[2019-12-13 21:19] LABS: VANC TR 9.1 mcg/mL (10.0-20.0)
[2019-12-13] MEDS: VANCOMYCIN 1.75 GM in IV NORMAL SALINE 500ML BAG 500 ML IV SCH (21:52)
--- NOTE | 2019-12-13 22:34 | NUR ---
Pharmacy Vancomycin Dosing Note S: Consulted to monitor and dose vancomycin started 12/12/19. O: MIRELES IV,RADHA is a 29 year old M with , Abd abscess . Other Antibiotics: zosyn LABS: Last BUN: 9 Last Creatinine: 0.6 Creatinine Clearance: >200 mL/min Last WBC: 10.8 Last Procalcitonin: Tmax (past 24 hours): 98.6 Microbiology: I/O: 1900/ 7 VOIDS Drug Levels: Last Trough level: 9.1 on 12/13/19 at 2045 Last dose given 12/13/19 at 1516 Vancomycin Dosing: Dosing Weight: Actual Target Trough: 15-20 A: Based on: Trough, Actual Wt and CrCl P: 1. 12/13/19 2200 Increase Vancomycin 1750 mg IV q8h 2. Follow up Trough level on 12/14/19 at 2130 3. Pharmacy will continue to monitor, follow and adjust therapy as needed. SUZANNA KRAUSE RPH, [id number] Signed: 12/13/19 at 223 by SUZANNA KRAUSE RPH PHA
[2019-12-13 23:00] VITALS: BP 136/80
[2019-12-14] MEDS: MORPHINE SULFATE 2 MG/ML VIAL. IV PRN ×4 (00:03→14:48)
[2019-12-14] MEDS: PIPERACILLIN/TAZOBACTAM 3.375 GM in IV NORMAL SALINE 50ML 50 ML IV SCH ×4 (00:04→17:35)
[2019-12-14 00:07] LABS: HEMOGLOBIN A1C 10.8 % (4.8-5.6)
[2019-12-14 03:00] VITALS: BP 148/63
[2019-12-14 05:20] LABS: CREATININE 0.6 mg/dL (0.7-1.3); GFR 157.1; POTASSIUM 3.7 mmol/L (3.5-5.1)
[2019-12-14] MEDS: VANCOMYCIN 1.75 GM in IV NORMAL SALINE 500ML BAG 500 ML IV SCH ×3 (06:10→22:12)
[2019-12-14 07:00] VITALS: BP 132/91
[2019-12-14] MEDS: HYDROcodone/APAP 5/325MG 1 TAB TABLET PO PRN ×2 (08:21→14:47)
[2019-12-14] MEDS: metFORMIN 500 MG TABLET PO SCH ×2 (08:22→17:03)
[2019-12-14] MEDS: LACTOBACILLUS RHAMNOSUS GG 1 CAPSULE. PO SCH ×2 (08:22→21:27)
[2019-12-14] MEDS: GABAPENTIN 300 MG CAPSULE. PO SCH ×3 (08:23→21:28)
[2019-12-14] MEDS: INSULIN LISPRO 300 UNITS/3 ML VIAL. SQ SCH ×6 (08:25→17:06)
--- NOTE | 2019-12-14 09:23 | PDOC ---
Infectious Disease Note Subjective: Subjective pt says feels better abdo pain is improving slowly no f/c/n/v/d Vital Signs: Vital Signs Vital Signs Date Time Temp Pulse Resp B/P (MAP) Pulse Ox O2 Delivery O2 Flow Rate FiO2 12/14/19 08:21 Room Air 12/14/19 07:00 98.0 82 16 132/91 (105) 95 98.0 12/13/19 14:34 10.0 Physical Exam: PHYSICAL EXAM GENERAL: Alert and oriented x 3, pleasant male lying in bed comfortably, in no acute distress. HEENT: Normocephalic, atraumatic. Anicteric. No thrush. NECK: Supple, no JVD. LUNGS: Clear bilaterally. No wheezing. HEART: S1, S2. No gallops or murmurs. ABDOMEN: Soft, nontender, nondistended. No rebound or guarding. Suprapubic area dressing in place, dry intact Tenderness present. No overlying warmth. No surrounding cellulitis. EXTREMITIES: No edema, no cyanosis. DERMATOLOGIC: Warm and dry. No generalized rash. Multiple tattoos in both upper and lower extremities. No other skin wounds noted. CENTRAL NERVOUS SYSTEM: Alert and oriented x 3, grossly nonfocal. Medications: Inpatient Meds: Current Medications Medications (Trade) Dose Ordered Sig/[facility] Start Time Stop Time Status Last Admin Dose Admin Acetaminophen (Tylenol) 650 mg PRN Q4HRS PRN 12/12/19 17:15 Acetaminophen/ Hydrocodone Bitart (Lortab 5/325) 1 tab PRN Q6HRS PRN 12/12/19 17:15 12/14/19 08:21 1 TAB Dexamethasone Sodium Phosphate (Decadron) 4 mg STK-MED ONCE 12/13/19 11:48 12/13/19 11:49 DC Dextrose (Dextrose 50%-Water Syringe) 12.5 gm PRN Q15MIN PRN 12/13/19 08:30 Dextrose (Iv Dextrose 5%) 250 ml PRN Q15MIN PRN 12/13/19 08:30 Fentanyl Citrate (Fentanyl 2ml Vial) 100 mcg STK-MED ONCE 12/13/19 14:02 12/13/19 14:02 DC Gabapentin (Neurontin) 300 mg TID 12/12/19 21:00 12/14/19 08:23 300 MG Glyburide (Diabeta) 5 mg BIDWMEALS 12/12/19 17:30 12/13/19 08:29 DC 12/12/19 18:02 5 MG Hydromorphone HCl (Dilaudid) 0.5 mg PRN Q10MIN PRN 12/13/19 09:15 12/14/19 09:14 DC Insulin Glargine (Lantus Syringe) 30 unit 1X ONCE 12/13/19 08:45 12/13/19 08:46 DC 12/13/19 09:47 30 UNIT Insulin Human Lispro (HumaLOG VIAL for OP,RR ONLY) 0-10 units PRN Q1HR PRN 12/13/19 14:45 12/14/19 14:44 12/13/19 15:26 6 UNIT Insulin Human Lispro (HumaLOG) 10 units TIDWMEALS 12/13/19 08:45 12/14/19 08:25 10 UNITS Lactobacillus Rhamnosus (Culturelle) 1 cap BID 12/12/19 21:00 12/14/19 08:22 1 CAP Lidocaine HCl (Lidocaine Pf 2% Vial) 5 ml STK-MED ONCE 12/13/19 11:48 12/13/19 11:49 DC Lidocaine/ Epinephrine (LIDOCAINE 1%-EPI 1:100,000 Multi-Dose) 20 ml STK-MED ONCE 12/13/19 13:16 12/13/19 13:17 DC Metformin HCl (Glucophage) 500 mg BIDWMEALS 12/12/19 17:30 12/14/19 08:22 500 MG Morphine Sulfate (Morphine Sulfate) 1 mg PRN Q4HRS PRN 12/13/19 23:30 12/14/19 05:28 1 MG Nicotine (Nicoderm Cq 21mg) 1 patch DAILY 12/12/19 17:30 12/13/19 17:04 1 PATCH Ondansetron HCl (Zofran) 4 mg STK-MED ONCE 12/13/19 11:48 12/13/19 11:49 DC Piperacillin Sod/ Tazobactam Sod (Zosyn Per Pharmacy) 1 each PRN DAILY PRN 12/12/19 17:45 Piperacillin Sod/ Tazobactam Sod 3.375 gm/Sodium Chloride 50 ml @ 100 mls/hr Q6HRS 12/12/19 18:00 12/14/19 05:30 100 MLS/HR Potassium Chloride (Klor-Con) 40 meq 1X ONCE 12/13/19 08:30 12/13/19 08:33 DC 12/13/19 17:03 40 MEQ Prochlorperazine Edisylate (Compazine) 5 mg PACU PRN PRN 12/13/19 09:15 12/14/19 09:14 DC 12/13/19 15:02 5 MG Propofol 20 ml @ As Directed STK-MED ONCE 12/13/19 13:50 12/13/19 13:50 DC Ringer's Solution 1,000 ml @ 30 mls/hr Q24H 12/13/19 09:03 12/13/19 21:02 DC 12/13/19 11:29 30 MLS/HR Sevoflurane (Ultane) 30 ml STK-MED ONCE 12/13/19 14:05 12/13/19 14:06 DC Vancomycin HCl (Vanco Per Pharmacy) 1 each PRN DAILY PRN 12/12/19 17:45 12/13/19 22:33 1 EACH Vancomycin HCl (Vancomycin Trough Level) 1 each 1X ONCE 12/14/19 21:30 12/14/19 21:31 Vancomycin HCl 1.5 gm/Sodium Chloride 500 ml @ 250 mls/hr Q8H 12/13/19 05:00 12/13/19 21:35 DC 12/13/19 15:16 250 MLS/HR Vancomycin HCl 1.75 gm/Sodium Chloride 500 ml @ 250 mls/hr Q8H 12/13/19 22:00 12/14/19 06:10 250 MLS/HR Vancomycin HCl 2 gm/Sodium Chloride 500 ml @ 250 mls/hr 1X ONCE 12/12/19 18:00 12/12/19 19:59 DC 12/12/19 18:05 250 MLS/HR Labs: Lab Laboratory Tests Test 12/13/19 10:25 12/13/19 11:36 12/13/19 12:41 12/13/19 12:47 Erythrocyte Sedimentation Rate 12 (0-15) Prothrombin Time 12.5 SEC (11.7-14.0) Prothromb Time International Ratio 1.0 (0.8-1.1) Hemoglobin A1c 10.8 % (4.8-5.6) Glucose (Fingerstick) 265 mg/dL (70-99) 288 mg/dL (70-99) 283 mg/dL (70-99) Test 12/13/19 15:09 12/13/19 16:33 12/13/19 20:45 12/13/19 20:50 Glucose (Fingerstick) 211 mg/dL (70-99) 210 mg/dL (70-99) 260 mg/dL (70-99) Vancomycin Level Trough 9.1 mcg/mL (10.0-20.0) Vancomycin Last Dose Date 12/13/19 Vancomycin Last Dose Time 1300 Test 12/14/19 04:50 Sodium Level 138 mmol/L (136-145) Potassium Level 3.7 mmol/L (3.5-5.1) Chloride Level 100 mmol/L (98-107) Carbon Dioxide Level 29 mmol/L (21-32) Anion Gap 9 (6-14) Blood Urea Nitrogen 9 mg/dL (8-26) Creatinine 0.6 mg/dL (0.7-1.3) Estimated GFR (Cockcroft-Gault) 157.1 Glucose Level 275 mg/dL (70-99) Calcium Level 9.0 mg/dL (8.5-10.1) Objective: Assessment: 1. Draining abdominal wound with underlying abscess, 12/13 s/p Incision and drainage of left lower quadrant abscess 2. Diabetes mellitus, newly diagnosed. 3. Leukocytosis. 4. Hyperglycemia. 5. Hypokalemia. Plan: Plan of Care 1. Continue IV vancomycin and Zosyn. 2. Follow up blood cultures from [facility]. 3. f/u intraoperative cultures. 4. Follow up labs in a.m. 5. Continue supportive care. 6. Wound care per General Surgery. 7. Optimal diabetes control. KRYSTAL ABDALLA MD Dec 14, 2019 09:23
[2019-12-14 11:00] VITALS: BP 150/79
--- NOTE | 2019-12-14 11:09 | PDOC ---
PROGRESS NOTES Chief Complaint Chief Complaint transferred from [facility] of abd abscess with sinus tract formation, HE was admitted there 3-4days ago (thursday), getting IV abx but interval CT shows the above so transferred here for GS, History of Present Illness History of Present Illness VTE Prophylaxis Ordered VTE Prophylaxis Devices: Yes VTE Pharmacological Prophylaxi: Yes Assessment/Plan Assessment/Plan abd abscess with sinus tract formation suspected abscess and sinus tract about a 4.1 x 3.4 x 2.5 cm in size. NEw onset DM PLAn: insulin regimen - 30 qhs lantus , 10 TID plus metformin hgba1c DM education surgical drrainge plans by GS reviewed COnsult ID esr=[id number] PT.INR 12/14 post-op pain, slow to resolve Operative Note Operative Note 12/13 Operative Note Operative Note: Preoperative Diagnosis: Left lower quadrant abdominal abscess Postoperative Diagnosis: Same Procedure: Incision and drainage of left lower quadrant abscess Surgeon: Obey Anesthesia: Gen. EBL: 10 mL Specimen: Cultures to microbiology Drains: None Complications: None Indication: The patient is a 29-year-old male who was recently diagnosed with diabetes. He was found on examination to have a left lower quadrant abscess. He was will require incision and drainage in the operating room. Vitals Vitals Vital Signs Date Time Temp Pulse Resp B/P (MAP) Pulse Ox O2 Delivery O2 Flow Rate FiO2 12/14/19 10:40 Room Air 12/14/19 07:00 98.0 82 16 132/91 (105) 95 98.0 12/13/19 14:34 10.0 Physical Exam Physical Exam GENERAL: Alert and oriented x 3, pleasant male lying in bed comfortably, in no acute distress. HEENT: Normocephalic, atraumatic. Anicteric. No thrush. NECK: Supple, no JVD. LUNGS: Clear bilaterally. No wheezing. HEART: S1, S2. No gallops or murmurs. ABDOMEN: Soft, nontender, nondistended. No rebound or guarding. Suprapubic area dressing in place, dry intact Tenderness present. No overlying warmth. No surrounding cellulitis. EXTREMITIES: No edema, no cyanosis. DERMATOLOGIC: Warm and dry. No generalized rash. Multiple tattoos in both upper and lower extremities. No other skin wounds noted. CENTRAL NERVOUS SYSTEM: Alert and oriented x 3, grossly nonfocal. General: Alert, Oriented X3, Cooperative, No acute distress Heart: Regular rate, Normal S1, Normal S2 Lungs: Clear Abdomen: Soft, No tenderness, No hepatosplenomegaly, Other (wet dressing lower abd area but no /hard to see open skin lesion, nontender, not distended) Extremities: No clubbing, No cyanosis, No edema, Normal pulses, No tenderness/swelling Skin: No rashes Labs LABS SPEC #: [id number] ALBINO: 12/13/19140 STATUS: RES REQ #: [id number] RECD: 12/13/[address] [facility] [address]: ANGEL SHELTON MD SOURCE: ABDOMEN ENTR: 12/13/[address]: CAROL CARVALHO [facility]ESS KRYSTAL ABDALLA MD, STEPHEN J MD ORDERED: ANAER/AEROB/ANNALEE COMMENTS: LEFT LOWER ABDOMINAL ABSCESS Procedure Result ANAEROBIC-AEROBIC CULTURE PENDING ANAEROBIC RES 1 PENDING AEROBIC CULT PENDING AEROBIC RES 1 PENDING GRAM STAIN Final Final report GRAM STAIN RES 1 Final Comment No white blood cells seen. GRAM STAIN RES 2 Final No organisms seen Performed at: [facility], [place], [place] [id number] Vice President Media Relations: ARTI Oh MD, Phone: [phone] Laboratory Tests Test 12/13/19 11:36 12/13/19 12:41 12/13/19 12:47 12/13/19 15:09 Glucose (Fingerstick) 265 mg/dL (70-99) 288 mg/dL (70-99) 283 mg/dL (70-99) 211 mg/dL (70-99) Test 12/13/19 16:33 12/13/19 20:45 12/13/19 20:50 12/14/19 04:50 Glucose (Fingerstick) 210 mg/dL (70-99) 260 mg/dL (70-99) Vancomycin Level Trough 9.1 mcg/mL (10.0-20.0) Vancomycin Last Dose Date 12/13/19 Vancomycin Last Dose Time 1300 Sodium Level 138 mmol/L (136-145) Potassium Level 3.7 mmol/L (3.5-5.1) Chloride Level 100 mmol/L (98-107) Carbon Dioxide Level 29 mmol/L (21-32) Anion Gap 9 (6-14) Blood Urea Nitrogen 9 mg/dL (8-26) Creatinine 0.6 mg/dL (0.7-1.3) Estimated GFR (Cockcroft-Gault) 157.1 Glucose Level 275 mg/dL (70-99) Calcium Level 9.0 mg/dL (8.5-10.1) Comment Review of Relevant I have reviewed the following items vargas (where applicable) has been applied. Labs Laboratory Tests Test 12/12/19 16:06 12/12/19 20:36 12/13/19 04:20 12/13/19 07:29 Glucose (Fingerstick) 279 mg/dL (70-99) 296 mg/dL (70-99) 280 mg/dL (70-99) White Blood Count 10.8 x10^3/uL (4.0-11.0) Red Blood Count 5.27 x10^6/uL (4.30-5.70) Hemoglobin 15.5 g/dL (13.0-17.5) Hematocrit 46.2 % (39.0-53.0) Mean Corpuscular Volume 88 fL (79-100) Mean Corpuscular Hemoglobin 29 pg (25-35) Mean Corpuscular Hemoglobin Concent 34 g/dL (31-37) Red Cell Distribution Width 13.4 % (11.5-14.5) Platelet Count 272 x10^3/uL (140-400) Neutrophils (%) (Auto) 55 % (31-73) Lymphocytes (%) (Auto) 35 % (24-48) Monocytes (%) (Auto) 7 % (0-9) Eosinophils (%) (Auto) 2 % (0-3) Basophils (%) (Auto) 0 % (0-3) Neutrophils # (Auto) 6.0 x10^3/uL (1.8-7.7) Lymphocytes # (Auto) 3.8 x10^3/uL (1.0-4.8) Monocytes # (Auto) 0.8 x10^3/uL (0.0-1.1) Eosinophils # (Auto) 0.2 x10^3/uL (0.0-0.7) Basophils # (Auto) 0.0 x10^3/uL (0.0-0.2) Sodium Level 139 mmol/L (136-145) Potassium Level 3.2 mmol/L (3.5-5.1) Chloride Level 100 mmol/L (98-107) Carbon Dioxide Level 30 mmol/L (21-32) Anion Gap 9 (6-14) Blood Urea Nitrogen 9 mg/dL (8-26) Creatinine 0.6 mg/dL (0.7-1.3) Estimated GFR (Cockcroft-Gault) 157.1 BUN/Creatinine Ratio 15 (6-20) Glucose Level 290 mg/dL (70-99) Calcium Level 9.0 mg/dL (8.5-10.1) Total Bilirubin 0.4 mg/dL (0.2-1.0) Aspartate Amino Transf (AST/SGOT) 9 U/L (15-37) Alanine Aminotransferase (ALT/SGPT) 12 U/L (16-63) Alkaline Phosphatase 85 U/L (46-116) Total Protein 6.5 g/dL (6.4-8.2) Albumin 2.9 g/dL (3.4-5.0) Albumin/Globulin Ratio 0.8 (1.0-1.7) Test 12/13/19 10:25 12/13/19 11:36 12/13/19 12:41 12/13/19 12:47 Erythrocyte Sedimentation Rate 12 (0-15) Prothrombin Time 12.5 SEC (11.7-14.0) Prothromb Time International Ratio 1.0 (0.8-1.1) Hemoglobin A1c 10.8 % (4.8-5.6) Glucose (Fingerstick) 265 mg/dL (70-99) 288 mg/dL (70-99) 283 mg/dL (70-99) Test 12/13/19 15:09 12/13/19 16:33 12/13/19 20:45 12/13/19 20:50 Glucose (Fingerstick) 211 mg/dL (70-99) 210 mg/dL (70-99) 260 mg/dL (70-99) Vancomycin Level Trough 9.1 mcg/mL (10.0-20.0) Vancomycin Last Dose Date 12/13/19 Vancomycin Last Dose Time 1300 Test 12/14/19 04:50 Sodium Level 138 mmol/L (136-145) Potassium Level 3.7 mmol/L (3.5-5.1) Chloride Level 100 mmol/L (98-107) Carbon Dioxide Level 29 mmol/L (21-32) Anion Gap 9 (6-14) Blood Urea Nitrogen 9 mg/dL (8-26) Creatinine 0.6 mg/dL (0.7-1.3) Estimated GFR (Cockcroft-Gault) 157.1 Glucose Level 275 mg/dL (70-99) Calcium Level 9.0 mg/dL (8.5-10.1) Laboratory Tests Test 12/13/19 11:36 12/13/19 12:41 12/13/19 12:47 12/13/19 15:09 Glucose (Fingerstick) 265 mg/dL (70-99) 288 mg/dL (70-99) 283 mg/dL (70-99) 211 mg/dL (70-99) Test 12/13/19 16:33 12/13/19 20:45 12/13/19 20:50 12/14/19 04:50 Glucose (Fingerstick) 210 mg/dL (70-99) 260 mg/dL (70-99) Vancomycin Level Trough 9.1 mcg/mL (10.0-20.0) Vancomycin Last Dose Date 12/13/19 Vancomycin Last Dose Time 1300 Sodium Level 138 mmol/L (136-145) Potassium Level 3.7 mmol/L (3.5-5.1) Chloride Level 100 mmol/L (98-107) Carbon Dioxide Level 29 mmol/L (21-32) Anion Gap 9 (6-14) Blood Urea Nitrogen 9 mg/dL (8-26) Creatinine 0.6 mg/dL (0.7-1.3) Estimated GFR (Cockcroft-Gault) 157.1 Glucose Level 275 mg/dL (70-99) Calcium Level 9.0 mg/dL (8.5-10.1) Medications Current Medications Insulin Glargine (Lantus Syringe) 20 unit QHS SQ Last administered on 12/12/19at 21:30; Start 12/12/19 at 21:00; Stop 12/13/19 at 08:29; Status DC Insulin Human Lispro (HumaLOG) 0-5 UNITS TIDWMEALS SQ Last administered on 12/12/19at 18:47; Start 12/12/19 at 18:00; Stop 12/13/19 at 08:29; Status DC Dextrose (Dextrose 50%-Water Syringe) 12.5 gm PRN Q15MIN PRN IV SEE COMMENTS; Start 12/12/19 at 17:15; Stop 12/13/19 at 12:19; Status DC Dextrose (Iv Dextrose 5%) 250 ml PRN Q15MIN PRN IV SEE COMMENTS; Start 12/12/19 at 17:15; Stop 12/13/19 at 12:19; Status DC Gabapentin (Neurontin) 300 mg TID PO Last administered on 12/14/19at 08:23; Start 12/12/19 at 21:00 Acetaminophen/ Hydrocodone Bitart (Lortab 5/325) 1 tab PRN Q6HRS PRN PO MODERATE PAIN Last administered on 12/14/19at 08:21; Start 12/12/19 at 17:15 Insulin Glargine (Lantus Syringe) 10 unit DAILY08 SQ ; Start 12/13/19 at 08:00; Stop 12/13/19 at 08:29; Status DC Lactobacillus Rhamnosus (Culturelle) 1 cap BID PO Last administered on 12/14/19at 08:22; Start 12/12/19 at 21:00 Nicotine (Nicoderm Cq 21mg) 1 patch DAILY TD Last administered on 12/13/19at 17:04; Start 12/12/19 at 17:30 Glyburide (Diabeta) 5 mg BIDWMEALS PO Last administered on 12/12/19at 18:02; Start 12/12/19 at 17:30; Stop 12/13/19 at 08:29; Status DC Metformin HCl (Glucophage) 500 mg BIDWMEALS PO Last administered on 12/14/19at 08:22; Start 12/12/19 at 17:30 Acetaminophen (Tylenol) 650 mg PRN Q4HRS PRN PO MILD PAIN / TEMP; Start 12/12/19 at 17:15 Ondansetron HCl (Zofran) 4 mg PRN Q4HRS PRN IVP NAUSEA/VOMITING; Start 12/12/19 at 17:15 Piperacillin Sod/ Tazobactam Sod 3.375 gm/Sodium Chloride 50 ml @ 100 mls/hr Q6HRS IV Last administered on 12/14/19at 05:30; Start 12/12/19 at 18:00 Piperacillin Sod/ Tazobactam Sod (Zosyn Per Pharmacy) 1 each PRN DAILY PRN MC SEE COMMENTS; Start 12/12/19 at 17:45 Vancomycin HCl (Vanco Per Pharmacy) 1 each PRN DAILY PRN MC SEE COMMENTS Last administered on 12/13/19at 22:33; Start 12/12/19 at 17:45 Vancomycin HCl 2 gm/Sodium Chloride 500 ml @ 250 mls/hr 1X ONCE IV Last administered on 12/12/19at 18:05; Start 12/12/19 at 18:00; Stop 12/12/19 at 19:59; Status DC Vancomycin HCl 1.5 gm/Sodium Chloride 500 ml @ 250 mls/hr Q8H IV Last administered on 12/13/19at 15:16; Start 12/13/19 at 05:00; Stop 12/13/19 at 21:35; Status DC Vancomycin HCl (Vancomycin Trough Level) 1 each 1X ONCE MC Last administered on 12/13/19at 21:32; Start 12/13/19 at 20:30; Stop 12/13/19 at 20:31; Status DC Insulin Glargine (Lantus Syringe) 30 unit QHS SQ ; Start 12/14/19 at 21:00 Insulin Human Lispro (HumaLOG) 0-9 UNITS TIDWMEALS SQ Last administered on 12/14/19at 08:25; Start 12/13/19 at 12:00 Dextrose (Dextrose 50%-Water Syringe) 12.5 gm PRN Q15MIN PRN IV SEE COMMENTS; Start 12/13/19 at 08:30 Dextrose (Iv Dextrose 5%) 250 ml PRN Q15MIN PRN IV SEE COMMENTS; Start 12/13/19 at 08:30 Potassium Chloride (Klor-Con) 40 meq 1X ONCE PO Last administered on 12/13/19at 17:03; Start 12/13/19 at 08:30; Stop 12/13/19 at 08:33; Status DC Insulin Human Lispro (HumaLOG) 10 units TIDWMEALS SQ Last administered on 12/14/19at 08:25; Start 12/13/19 at 08:45 Insulin Glargine (Lantus Syringe) 30 unit 1X ONCE SQ Last administered on 12/13/19at 09:47; Start 12/13/19 at 08:45; Stop 12/13/19 at 08:46; Status DC Ondansetron HCl (Zofran) 4 mg PRN Q6HRS PRN IV NAUSEA/VOMITING; Start 12/13/19 at 09:15; Stop 12/14/19 at 09:14; Status DC Fentanyl Citrate (Fentanyl 2ml Vial) 25 mcg PRN Q5MIN PRN IV MILD PAIN 1-3; Start 12/13/19 at 09:15; Stop 12/14/19 at 09:14; Status DC Fentanyl Citrate (Fentanyl 2ml Vial) 50 mcg PRN Q5MIN PRN IV MODERATE TO SEVERE PAIN Last administered on 12/13/19at 15:03; Start 12/13/19 at 09:15; Stop 12/14/19 at 09:14; Status DC Morphine Sulfate (Morphine Sulfate) 1 mg PRN Q10MIN PRN IV SEVERE PAIN 7-10 Last administered on 12/13/19at 15:52; Start 12/13/19 at 09:15; Stop 12/14/19 at 09:14; Status DC Ringer's Solution 1,000 ml @ 30 mls/hr Q24H IV Last administered on 12/13/19at 11:29; Start 12/13/19 at 09:03; Stop 12/13/19 at 21:02; Status DC Hydromorphone HCl (Dilaudid) 0.5 mg PRN Q10MIN PRN IV SEV PAIN, Second choice; Start 12/13/19 at 09:15; Stop 12/14/19 at 09:14; Status DC Prochlorperazine Edisylate (Compazine) 5 mg PACU PRN PRN IV NAUSEA, MRX1 Last administered on 12/13/19at 15:02; Start 12/13/19 at 09:15; Stop 12/14/19 at 09:14; Status DC Propofol 20 ml @ As Directed STK-MED ONCE IV ; Start 12/13/19 at 11:48; Stop 12/13/19 at 11:49; Status DC Lidocaine HCl (Lidocaine Pf 2% Vial) 5 ml STK-MED ONCE .ROUTE ; Start 12/13/19 at 11:48; Stop 12/13/19 at 11:49; Status DC Dexamethasone Sodium Phosphate (Decadron) 4 mg STK-MED ONCE .ROUTE ; Start 12/13/19 at 11:48; Stop 12/13/19 at 11:49; Status DC Ondansetron HCl (Zofran) 4 mg STK-MED ONCE .ROUTE ; Start 12/13/19 at 11:48; Stop 12/13/19 at 11:49; Status DC Fentanyl Citrate (Fentanyl 2ml Vial) 100 mcg STK-MED ONCE .ROUTE ; Start 12/13/19 at 11:49; Stop 12/13/19 at 11:49; Status DC Lidocaine/ Epinephrine (LIDOCAINE 1%-EPI 1:100,000 Multi-Dose) 20 ml STK-MED ONCE .ROUTE ; Start 12/13/19 at 13:16; Stop 12/13/19 at 13:17; Status DC Propofol 20 ml @ As Directed STK-MED ONCE IV ; Start 12/13/19 at 13:50; Stop 12/13/19 at 13:50; Status DC Fentanyl Citrate (Fentanyl 2ml Vial) 100 mcg STK-MED ONCE .ROUTE ; Start 12/13/19 at 14:02; Stop 12/13/19 at 14:02; Status DC Sevoflurane (Ultane) 30 ml STK-MED ONCE IH ; Start 12/13/19 at 14:05; Stop 12/13/19 at 14:06; Status DC Insulin Human Lispro (HumaLOG VIAL for OP,RR ONLY) 0-10 units PRN Q1HR PRN SQ PER PROTOCOL Last administered on 12/13/19at 15:26; Start 12/13/19 at 14:45; Stop 12/14/19 at 14:44 Morphine Sulfate (Morphine Sulfate) 4 mg 1X ONCE IV Last administered on 12/13/19at 14:49; Start 12/13/19 at 14:45; Stop 12/13/19 at 14:49; Status DC Vancomycin HCl 1.75 gm/Sodium Chloride 500 ml @ 250 mls/hr Q8H IV Last administered on 12/14/19at 06:10; Start 12/13/19 at 22:00 Vancomycin HCl (Vancomycin Trough Level) 1 each 1X ONCE MC ; Start 12/14/19 at 21:30; Stop 12/14/19 at 21:31 Morphine Sulfate (Morphine Sulfate) 1 mg PRN Q4HRS PRN IV PAIN Last administered on 12/14/19at 10:36; Start 12/13/19 at 23:30 Active Scripts Active No Active Prescriptions or Reported Medications Vitals/I & O Vital Sign - Last 24 Hours 12/13/19 12/13/19 12/13/19 12/13/19 11:11 14:16 14:16 14:31 Temp 98 97.4 98.0 97.4 Pulse 89 89 92 Resp 20 B/P (MAP) 130/80 136/74 155/87 Pulse Ox 95 99 97 O2 Delivery Room Air Simple Mask Mask Simple Mask O2 Flow Rate 10 10 10 12/13/19 12/13/19 12/13/19 12/13/19 14:34 14:46 14:49 15:01 Pulse 93 94 Resp 22 20 B/P (MAP) 143/83 116/74 Pulse Ox 99 95 99 94 O2 Delivery Simple Mask Room Air Room Air O2 Flow Rate 10.0 12/13/19 12/13/19 12/13/19 12/13/19 15:03 15:17 15:29 15:32 Pulse 88 78 Resp 20 20 20 20 B/P (MAP) 176/80 134/65 Pulse Ox 96 93 99 95 O2 Delivery Room Air Room Air Room Air Room Air 12/13/19 12/13/19 12/13/19 12/13/19 15:47 15:52 17:03 17:09 Temp 97.6 97.6 Pulse 81 Resp 20 20 B/P (MAP) 167/86 Pulse Ox 93 92 O2 Delivery Room Air Room Air Room Air Room Air 12/13/19 12/13/19 12/13/19 12/13/19 18:20 19:00 20:00 23:00 Temp 97.8 98.0 97.8 98.0 Pulse 95 89 Resp 18 18 B/P (MAP) 134/86 (102) 136/80 (98) Pulse Ox 97 96 O2 Delivery Room Air Room Air Room Air Room Air 12/13/19 12/14/19 12/14/19 12/14/19 23:13 00:03 00:16 00:33 O2 Delivery Room Air Room Air Room Air Room Air 12/14/19 12/14/19 12/14/19 12/14/19 03:00 05:28 05:56 07:00 Temp 98.1 98.0 98.1 98.0 Pulse 78 82 Resp 18 16 B/P (MAP) 148/63 (91) 132/91 (105) Pulse Ox 97 95 O2 Delivery Room Air Room Air Room Air Room Air 12/14/19 12/14/19 12/14/19 12/14/19 08:15 08:21 10:36 10:40 O2 Delivery Room Air Room Air Room Air Room Air Intake and Output 12/13/19 12/13/19 12/14/19 14:59 22:59 06:59 Intake Total 700 ml 500 ml 700 ml Output Total 10 ml Balance 690 ml 500 ml 700 ml ANKITA COLLINS MD Dec 14, 2019 11:09
[2019-12-14] MEDS: VANCOMYCIN PER PHARMACY MC PRN (11:23)
[2019-12-14] MEDS: NICOTINE 21MG PATCH. TD SCH (11:52)
[2019-12-14 15:00] VITALS: BP 164/100
--- NOTE | 2019-12-14 15:42 | NUR ---
Wound Care: Patient seen per wound care consult. See wound assessment. Patient is s/p I&D of abdominal abscess on 12/13/19. Patient premedicated. Dressing removed and wound cleansed, assessed, measured, and pictured. Recommendations to pack with Aquacel Ag strips and cover with ABD pad and tape. Patient to change own dressings. Patient teaching performed and dressing applied. No other wounds noted. Dressing change instructions left in room. Bed lowered and call light in reach. Will follow patient regarding wound care.
[2019-12-14] MEDS: HYDROcodone/APAP 10/325 1 TAB TABLET PO PRN (17:35)
[2019-12-14] MEDS: HYDROmorphone 2 MG/ML VIAL IV PRN ×2 (18:57→22:13)
[2019-12-14 19:00] VITALS: BP 138/80
[2019-12-14] MEDS ORDERED: INSULIN GLARGINE SYRINGE. SQ SCH (21:00)
[2019-12-14 21:40] LABS: VANC TR 12.7 mcg/mL (10.0-20.0)
[2019-12-14 23:00] VITALS: BP 134/81
[2019-12-15] MEDS: PIPERACILLIN/TAZOBACTAM 3.375 GM in IV NORMAL SALINE 50ML 50 ML IV SCH ×4 (00:36→17:28)
[2019-12-15] MEDS: VANCOMYCIN PER PHARMACY MC PRN ×2 (01:15→14:09)
--- NOTE | 2019-12-15 01:15 | NUR ---
Pharmacy Vancomycin Dosing Note S:Consulted to monitor and dose vancomycin started 12/12/19. O:MIRELES IV,RADHA is a 29 year old M with Abd abscess . Height: 6 feet, 2 inches Weight: 115.976649 kg [place] Body Weight: 82.20 Adjusted Body Weight: 95.72 Dosing Weight: Actual Other Antibiotics: zosyn LABS: Last BUN: 9 Last Creatinine: 0.6 Creatinine Clearance: >200 mL/min Last WBC: 10.8 Last Procalcitonin: Tmax (past 24 hours): 98.1 Microbiology: I/O: 1899/ 2 VOIDS Drug Levels: Last Trough level: 12.7 on 12/14/19 at 2130 Last dose given 12/14/19 at 0610 Vancomycin Dosing: Loading Dose: 2000 mg x1 Dosing Weight: Actual Target Trough: 10-20 A: Based on: TROUGH AND CONDITION P: 1. Continue Vancomycin 1750 mg IV q8h 2. Follow up Trough level IF NEEDED 3. Pharmacy will continue to monitor, follow and adjust therapy as needed. KATE HAMPTON RPH, 12/15/19 0115 Signed: 12/15/19 at 0116 by KATE HAMPTON RPH PHA
[2019-12-15] MEDS: HYDROmorphone 2 MG/ML VIAL IV PRN ×5 (01:23→22:57)
[2019-12-15 03:00] VITALS: BP 118/64
[2019-12-15 05:48] LABS: BASO # 0.1 x10^3/uL (0.0-0.2); BASO % 1 % (0-3); EOS # 0.2 x10^3/uL (0.0-0.7); EOS % 2 % (0-3); HEMATOCRIT 42.8 % (39.0-53.0); HEMOGLOBIN 14.4 g/dL (13.0-17.5); LYMPH # 4.6 x10^3/uL (1.0-4.8); LYMPH % 42 % (24-48); MEAN CORPUSCULAR HEMOGLOBIN 30 pg (25-35); MEAN CORPUSCULAR HGB CONC 34 g/dL (31-37); MEAN CORPUSCULAR VOLUME 88 fL (79-100); MONO # 0.7 x10^3/uL (0.0-1.1); MONO % 6 % (0-9); NEUT # 5.3 x10^3/uL (1.8-7.7); NEUT % 49 % (31-73); PLATELET COUNT 267 x10^3/uL (140-400); RED BLOOD COUNT 4.89 x10^6/uL (4.30-5.70); RED CELL DISTRIBUTION WIDTH 13.3 % (11.5-14.5); WHITE BLOOD COUNT 10.8 x10^3/uL (4.0-11.0)
[2019-12-15 06:11] LABS: CALCIUM 8.9 mg/dL (8.5-10.1); CREATININE 0.7 mg/dL (0.7-1.3); GFR 131.5; POTASSIUM 3.8 mmol/L (3.5-5.1)
[2019-12-15] MEDS: VANCOMYCIN 1.75 GM in IV NORMAL SALINE 500ML BAG 500 ML IV SCH ×4 (06:25→21:52)
[2019-12-15 07:00] VITALS: BP 120/82
[2019-12-15] MEDS: NICOTINE 21MG PATCH. TD SCH (09:23)
[2019-12-15] MEDS: metFORMIN 500 MG TABLET PO SCH ×2 (09:24→17:28)
[2019-12-15] MEDS: GABAPENTIN 300 MG CAPSULE. PO SCH ×3 (09:24→21:52)
[2019-12-15] MEDS: LACTOBACILLUS RHAMNOSUS GG 1 CAPSULE. PO SCH ×2 (09:24→21:52)
[2019-12-15] MEDS: HYDROcodone/APAP 10/325 1 TAB TABLET PO PRN ×2 (09:25→17:28)
[2019-12-15] MEDS: INSULIN LISPRO 300 UNITS/3 ML VIAL. SQ SCH ×6 (09:34→17:34)
--- NOTE | 2019-12-15 09:36 | PDOC ---
PRABHU PERRY MAIL ORDER SORTER 12/15/19 0936: SURGICAL PROGRESS NOTE Subjective improved Vital Signs Vital Signs Date Time Temp Pulse Resp B/P (MAP) Pulse Ox O2 Delivery O2 Flow Rate FiO2 12/15/19 07:00 98.2 69 14 120/82 (95) 94 Room Air 98.2 12/14/19 15:33 10.0 I&O Intake and Output 12/15/19 07:00 Intake Total 2410 ml Balance 2410 ml Intake Oral 760 ml IV Total 1650 ml # Voids 5 General: Alert, Oriented X3 HEENT: Atraumatic Abdomen: Soft, Other (wound dressed ) Labs Laboratory Tests Test 12/13/19 10:25 12/13/19 11:36 12/13/19 12:41 12/13/19 12:47 Erythrocyte Sedimentation Rate 12 (0-15) Prothrombin Time 12.5 SEC (11.7-14.0) Prothromb Time International Ratio 1.0 (0.8-1.1) Hemoglobin A1c 10.8 % (4.8-5.6) Glucose (Fingerstick) 265 mg/dL (70-99) 288 mg/dL (70-99) 283 mg/dL (70-99) Test 12/13/19 15:09 12/13/19 16:33 12/13/19 20:45 12/13/19 20:50 Glucose (Fingerstick) 211 mg/dL (70-99) 210 mg/dL (70-99) 260 mg/dL (70-99) Vancomycin Level Trough 9.1 mcg/mL (10.0-20.0) Vancomycin Last Dose Date 12/13/19 Vancomycin Last Dose Time 1300 Test 12/14/19 04:50 12/14/19 21:20 12/15/19 04:49 Sodium Level 138 mmol/L (136-145) 139 mmol/L (136-145) Potassium Level 3.7 mmol/L (3.5-5.1) 3.8 mmol/L (3.5-5.1) Chloride Level 100 mmol/L (98-107) 102 mmol/L (98-107) Carbon Dioxide Level 29 mmol/L (21-32) 33 mmol/L (21-32) Anion Gap 9 (6-14) 4 (6-14) Blood Urea Nitrogen 9 mg/dL (8-26) 12 mg/dL (8-26) Creatinine 0.6 mg/dL (0.7-1.3) 0.7 mg/dL (0.7-1.3) Estimated GFR (Cockcroft-Gault) 157.1 131.5 Glucose Level 275 mg/dL (70-99) 334 mg/dL (70-99) Calcium Level 9.0 mg/dL (8.5-10.1) 8.9 mg/dL (8.5-10.1) Vancomycin Level Trough 12.7 mcg/mL (10.0-20.0) Vancomycin Last Dose Date Unk Vancomycin Last Dose Time Unk White Blood Count 10.8 x10^3/uL (4.0-11.0) Red Blood Count 4.89 x10^6/uL (4.30-5.70) Hemoglobin 14.4 g/dL (13.0-17.5) Hematocrit 42.8 % (39.0-53.0) Mean Corpuscular Volume 88 fL (79-100) Mean Corpuscular Hemoglobin 30 pg (25-35) Mean Corpuscular Hemoglobin Concent 34 g/dL (31-37) Red Cell Distribution Width 13.3 % (11.5-14.5) Platelet Count 267 x10^3/uL (140-400) Neutrophils (%) (Auto) 49 % (31-73) Lymphocytes (%) (Auto) 42 % (24-48) Monocytes (%) (Auto) 6 % (0-9) Eosinophils (%) (Auto) 2 % (0-3) Basophils (%) (Auto) 1 % (0-3) Neutrophils # (Auto) 5.3 x10^3/uL (1.8-7.7) Lymphocytes # (Auto) 4.6 x10^3/uL (1.0-4.8) Monocytes # (Auto) 0.7 x10^3/uL (0.0-1.1) Eosinophils # (Auto) 0.2 x10^3/uL (0.0-0.7) Basophils # (Auto) 0.1 x10^3/uL (0.0-0.2) Laboratory Tests Test 12/14/19 21:20 12/15/19 04:49 Vancomycin Level Trough 12.7 mcg/mL (10.0-20.0) Vancomycin Last Dose Date Unk Vancomycin Last Dose Time Unk White Blood Count 10.8 x10^3/uL (4.0-11.0) Red Blood Count 4.89 x10^6/uL (4.30-5.70) Hemoglobin 14.4 g/dL (13.0-17.5) Hematocrit 42.8 % (39.0-53.0) Mean Corpuscular Volume 88 fL (79-100) Mean Corpuscular Hemoglobin 30 pg (25-35) Mean Corpuscular Hemoglobin Concent 34 g/dL (31-37) Red Cell Distribution Width 13.3 % (11.5-14.5) Platelet Count 267 x10^3/uL (140-400) Neutrophils (%) (Auto) 49 % (31-73) Lymphocytes (%) (Auto) 42 % (24-48) Monocytes (%) (Auto) 6 % (0-9) Eosinophils (%) (Auto) 2 % (0-3) Basophils (%) (Auto) 1 % (0-3) Neutrophils # (Auto) 5.3 x10^3/uL (1.8-7.7) Lymphocytes # (Auto) 4.6 x10^3/uL (1.0-4.8) Monocytes # (Auto) 0.7 x10^3/uL (0.0-1.1) Eosinophils # (Auto) 0.2 x10^3/uL (0.0-0.7) Basophils # (Auto) 0.1 x10^3/uL (0.0-0.2) Sodium Level 139 mmol/L (136-145) Potassium Level 3.8 mmol/L (3.5-5.1) Chloride Level 102 mmol/L (98-107) Carbon Dioxide Level 33 mmol/L (21-32) Anion Gap 4 (6-14) Blood Urea Nitrogen 12 mg/dL (8-26) Creatinine 0.7 mg/dL (0.7-1.3) Estimated GFR (Cockcroft-Gault) 131.5 Glucose Level 334 mg/dL (70-99) Calcium Level 8.9 mg/dL (8.5-10.1) Problem List continue wound care, abx LINDA HARRINGTON MD 12/16/19 0850: SURGICAL PROGRESS NOTE Assessment/Plan agree with above PRABHU PERRY APRN Dec 15, 2019 09:36 LINDA HARRINGTON MD Dec 16, 2019 08:50
--- NOTE | 2019-12-15 10:28 | PDOC ---
Infectious Disease Note Subjective: Subjective pt says feels better abdo pain is improving slowly no f/c/n/v/d Vital Signs: Vital Signs Vital Signs Date Time Temp Pulse Resp B/P (MAP) Pulse Ox O2 Delivery O2 Flow Rate FiO2 12/15/19 09:25 18 Room Air 12/15/19 07:00 98.2 69 120/82 (95) 94 98.2 12/14/19 15:33 10.0 Physical Exam: PHYSICAL EXAM GENERAL: Alert and oriented x 3, pleasant male lying in bed comfortably, in no acute distress. HEENT: Normocephalic, atraumatic. Anicteric. No thrush. NECK: Supple, no JVD. LUNGS: Clear bilaterally. No wheezing. HEART: S1, S2. No gallops or murmurs. ABDOMEN: Soft, nontender, nondistended. No rebound or guarding. Suprapubic area dressing in place, dry intact Tenderness present. No overlying warmth. No surrounding cellulitis. EXTREMITIES: No edema, no cyanosis. DERMATOLOGIC: Warm and dry. No generalized rash. Multiple tattoos in both upper and lower extremities. No other skin wounds noted. CENTRAL NERVOUS SYSTEM: Alert and oriented x 3, grossly nonfocal. Medications: Inpatient Meds: Current Medications Medications (Trade) Dose Ordered Sig/[facility] Start Time Stop Time Status Last Admin Dose Admin Acetaminophen (Tylenol) 650 mg PRN Q4HRS PRN 12/12/19 17:15 Acetaminophen/ Hydrocodone Bitart (Lortab 10/325) 1 tab PRN Q4HRS PRN 12/14/19 17:15 12/15/19 09:25 1 TAB Acetaminophen/ Hydrocodone Bitart (Lortab 5/325) 1 tab PRN Q6HRS PRN 12/12/19 17:15 12/14/19 14:47 1 TAB Dexamethasone Sodium Phosphate (Decadron) 4 mg STK-MED ONCE 12/13/19 11:48 12/13/19 11:49 DC Dextrose (Dextrose 50%-Water Syringe) 12.5 gm PRN Q15MIN PRN 12/13/19 08:30 Dextrose (Iv Dextrose 5%) 250 ml PRN Q15MIN PRN 12/13/19 08:30 Fentanyl Citrate (Fentanyl 2ml Vial) 100 mcg STK-MED ONCE 12/13/19 14:02 12/13/19 14:02 DC Gabapentin (Neurontin) 300 mg TID 12/12/19 21:00 12/15/19 09:24 300 MG Glyburide (Diabeta) 5 mg BIDWMEALS 12/12/19 17:30 12/13/19 08:29 DC 12/12/19 18:02 5 MG Hydromorphone HCl (Dilaudid) 1 mg PRN Q3HRS PRN 12/14/19 18:45 12/15/19 06:29 1 MG Insulin Glargine (Lantus Syringe) 45 unit QHS 12/15/19 21:00 Insulin Human Lispro (HumaLOG VIAL for OP,RR ONLY) 0-10 units PRN Q1HR PRN 12/13/19 14:45 12/14/19 14:44 DC 12/13/19 15:26 6 UNIT Insulin Human Lispro (HumaLOG) 15 units TIDWMEALS 12/15/19 08:30 12/15/19 09:34 15 UNITS Lactobacillus Rhamnosus (Culturelle) 1 cap BID 12/12/19 21:00 12/15/19 09:24 1 CAP Lidocaine HCl (Lidocaine Pf 2% Vial) 5 ml STK-MED ONCE 12/13/19 11:48 12/13/19 11:49 DC Lidocaine/ Epinephrine (LIDOCAINE 1%-EPI 1:100,000 Multi-Dose) 20 ml STK-MED ONCE 12/13/19 13:16 12/13/19 13:17 DC Metformin HCl (Glucophage) 500 mg BIDWMEALS 12/12/19 17:30 12/15/19 09:24 500 MG Morphine Sulfate (Morphine Sulfate) 1 mg PRN Q4HRS PRN 12/13/19 23:30 12/14/19 17:09 DC 12/14/19 14:48 1 MG Nicotine (Nicoderm Cq 21mg) 1 patch DAILY 12/12/19 17:30 12/15/19 09:23 1 PATCH Ondansetron HCl (Zofran) 4 mg STK-MED ONCE 12/13/19 11:48 12/13/19 11:49 DC Piperacillin Sod/ Tazobactam Sod (Zosyn Per Pharmacy) 1 each PRN DAILY PRN 12/12/19 17:45 Piperacillin Sod/ Tazobactam Sod 3.375 gm/Sodium Chloride 50 ml @ 100 mls/hr Q6HRS 12/12/19 18:00 12/15/19 05:28 100 MLS/HR Potassium Chloride (Klor-Con) 40 meq 1X ONCE 12/13/19 08:30 12/13/19 08:33 DC 12/13/19 17:03 40 MEQ Prochlorperazine Edisylate (Compazine) 5 mg PACU PRN PRN 12/13/19 09:15 12/14/19 09:14 DC 12/13/19 15:02 5 MG Propofol 20 ml @ As Directed STK-MED ONCE 12/13/19 13:50 12/13/19 13:50 DC Ringer's Solution 1,000 ml @ 30 mls/hr Q24H 12/13/19 09:03 12/13/19 21:02 DC 12/13/19 11:29 30 MLS/HR Sevoflurane (Ultane) 30 ml STK-MED ONCE 12/13/19 14:05 12/13/19 14:06 DC Vancomycin HCl (Vanco Per Pharmacy) 1 each PRN DAILY PRN 12/12/19 17:45 12/15/19 01:15 1 EACH Vancomycin HCl (Vancomycin Trough Level) 1 each 1X ONCE 12/14/19 21:30 12/14/19 21:31 DC 12/14/19 21:30 1 EACH Vancomycin HCl 1.5 gm/Sodium Chloride 500 ml @ 250 mls/hr Q8H 12/13/19 05:00 12/13/19 21:35 DC 12/13/19 15:16 250 MLS/HR Vancomycin HCl 1.75 gm/Sodium Chloride 500 ml @ 250 mls/hr Q8H 12/13/19 22:00 12/15/19 06:25 250 MLS/HR Vancomycin HCl 2 gm/Sodium Chloride 500 ml @ 250 mls/hr 1X ONCE 12/12/19 18:00 12/12/19 19:59 DC 12/12/19 18:05 250 MLS/HR Labs: Lab Laboratory Tests Test 12/14/19 21:20 12/15/19 04:49 Vancomycin Level Trough 12.7 mcg/mL (10.0-20.0) Vancomycin Last Dose Date Unk Vancomycin Last Dose Time Unk White Blood Count 10.8 x10^3/uL (4.0-11.0) Red Blood Count 4.89 x10^6/uL (4.30-5.70) Hemoglobin 14.4 g/dL (13.0-17.5) Hematocrit 42.8 % (39.0-53.0) Mean Corpuscular Volume 88 fL (79-100) Mean Corpuscular Hemoglobin 30 pg (25-35) Mean Corpuscular Hemoglobin Concent 34 g/dL (31-37) Red Cell Distribution Width 13.3 % (11.5-14.5) Platelet Count 267 x10^3/uL (140-400) Neutrophils (%) (Auto) 49 % (31-73) Lymphocytes (%) (Auto) 42 % (24-48) Monocytes (%) (Auto) 6 % (0-9) Eosinophils (%) (Auto) 2 % (0-3) Basophils (%) (Auto) 1 % (0-3) Neutrophils # (Auto) 5.3 x10^3/uL (1.8-7.7) Lymphocytes # (Auto) 4.6 x10^3/uL (1.0-4.8) Monocytes # (Auto) 0.7 x10^3/uL (0.0-1.1) Eosinophils # (Auto) 0.2 x10^3/uL (0.0-0.7) Basophils # (Auto) 0.1 x10^3/uL (0.0-0.2) Sodium Level 139 mmol/L (136-145) Potassium Level 3.8 mmol/L (3.5-5.1) Chloride Level 102 mmol/L (98-107) Carbon Dioxide Level 33 mmol/L (21-32) Anion Gap 4 (6-14) Blood Urea Nitrogen 12 mg/dL (8-26) Creatinine 0.7 mg/dL (0.7-1.3) Estimated GFR (Cockcroft-Gault) 131.5 Glucose Level 334 mg/dL (70-99) Calcium Level 8.9 mg/dL (8.5-10.1) Objective: Assessment: 1. Draining abdominal wound with underlying abscess, 12/13 s/p Incision and drainage of left lower quadrant abscess cult neg so far no org seen on g/s 2. Diabetes mellitus, newly diagnosed. 3. Leukocytosis. 4. Hyperglycemia. 5. Hypokalemia. Plan: Plan of Care 1. Continue IV vancomycin and Zosyn. 2. Follow up blood cultures from [facility]. 3. f/u intraoperative cultures. 4. Follow up labs in a.m. 5. Continue supportive care. 6. Wound care per General Surgery. 7. Optimal diabetes control. 8. SW to work on linezolid for home dc,script in chart and augmentin KRYSTAL ABDALLA MD Dec 15, 2019 10:28
[2019-12-15 11:00] VITALS: BP 131/79
--- NOTE | 2019-12-15 11:14 | PDOC ---
PROGRESS NOTES Chief Complaint Chief Complaint abd wall abscess with sinus tract formation s/p I and D 12/14/2019 NEW DM hgba1c 10 History of Present Illness History of Present Illness Wants to go home New DM Hgba1c 10 Comfortable injecting himself Still waiting on intra op cxs and cxs from [facility] I provided a copy to him, everything is PENDING PLAN: follow cxs INc lantus to 45 from 30 qhs Inc novolog from 10 to 15 TID Dw him NOt ready to dc Vitals Vitals Vital Signs Date Time Temp Pulse Resp B/P (MAP) Pulse Ox O2 Delivery O2 Flow Rate FiO2 12/15/19 10:25 16 Room Air 12/15/19 07:00 98.2 69 120/82 (95) 94 98.2 12/14/19 15:33 10.0 Physical Exam Physical Exam GENERAL: Alert and oriented x 3, pleasant male lying in bed comfortably, in no acute distress. HEENT: Normocephalic, atraumatic. Anicteric. No thrush. NECK: Supple, no JVD. LUNGS: Clear bilaterally. No wheezing. HEART: S1, S2. No gallops or murmurs. ABDOMEN: Soft, nontender, nondistended. No rebound or guarding. Suprapubic area dressing in place, dry intact Tenderness present. No overlying warmth. No surrounding cellulitis. EXTREMITIES: No edema, no cyanosis. DERMATOLOGIC: Warm and dry. No generalized rash. Multiple tattoos in both upper and lower extremities. No other skin wounds noted. CENTRAL NERVOUS SYSTEM: Alert and oriented x 3, grossly nonfocal. General: Alert, Oriented X3 Heart: Regular rate, Normal S1, Normal S2 Lungs: Clear Abdomen: Soft, Other (wound dressed ) Extremities: No clubbing, No cyanosis, No edema, Normal pulses, No tenderness/swelling Skin: No rashes Labs LABS Laboratory Tests Test 12/14/19 11:25 12/14/19 16:39 12/14/19 21:20 12/15/19 04:49 Glucose (Fingerstick) 310 mg/dL (70-99) 286 mg/dL (70-99) 284 mg/dL (70-99) Vancomycin Level Trough 12.7 mcg/mL (10.0-20.0) Vancomycin Last Dose Date Unk Vancomycin Last Dose Time Unk White Blood Count 10.8 x10^3/uL (4.0-11.0) Red Blood Count 4.89 x10^6/uL (4.30-5.70) Hemoglobin 14.4 g/dL (13.0-17.5) Hematocrit 42.8 % (39.0-53.0) Mean Corpuscular Volume 88 fL (79-100) Mean Corpuscular Hemoglobin 30 pg (25-35) Mean Corpuscular Hemoglobin Concent 34 g/dL (31-37) Red Cell Distribution Width 13.3 % (11.5-14.5) Platelet Count 267 x10^3/uL (140-400) Neutrophils (%) (Auto) 49 % (31-73) Lymphocytes (%) (Auto) 42 % (24-48) Monocytes (%) (Auto) 6 % (0-9) Eosinophils (%) (Auto) 2 % (0-3) Basophils (%) (Auto) 1 % (0-3) Neutrophils # (Auto) 5.3 x10^3/uL (1.8-7.7) Lymphocytes # (Auto) 4.6 x10^3/uL (1.0-4.8) Monocytes # (Auto) 0.7 x10^3/uL (0.0-1.1) Eosinophils # (Auto) 0.2 x10^3/uL (0.0-0.7) Basophils # (Auto) 0.1 x10^3/uL (0.0-0.2) Sodium Level 139 mmol/L (136-145) Potassium Level 3.8 mmol/L (3.5-5.1) Chloride Level 102 mmol/L (98-107) Carbon Dioxide Level 33 mmol/L (21-32) Anion Gap 4 (6-14) Blood Urea Nitrogen 12 mg/dL (8-26) Creatinine 0.7 mg/dL (0.7-1.3) Estimated GFR (Cockcroft-Gault) 131.5 Glucose Level 334 mg/dL (70-99) Calcium Level 8.9 mg/dL (8.5-10.1) Test 12/15/19 08:02 Glucose (Fingerstick) 330 mg/dL (70-99) Review of Systems Review of Systems minimal RLQ abd pain, no fevers, all else is neg Comment Review of Relevant I have reviewed the following items vargas (where applicable) has been applied. Labs Laboratory Tests Test 12/13/19 11:36 12/13/19 12:41 12/13/19 12:47 12/13/19 15:09 Glucose (Fingerstick) 265 mg/dL (70-99) 288 mg/dL (70-99) 283 mg/dL (70-99) 211 mg/dL (70-99) Test 12/13/19 16:33 12/13/19 20:45 12/13/19 20:50 12/14/19 04:50 Glucose (Fingerstick) 210 mg/dL (70-99) 260 mg/dL (70-99) Vancomycin Level Trough 9.1 mcg/mL (10.0-20.0) Vancomycin Last Dose Date 12/13/19 Vancomycin Last Dose Time 1300 Sodium Level 138 mmol/L (136-145) Potassium Level 3.7 mmol/L (3.5-5.1) Chloride Level 100 mmol/L (98-107) Carbon Dioxide Level 29 mmol/L (21-32) Anion Gap 9 (6-14) Blood Urea Nitrogen 9 mg/dL (8-26) Creatinine 0.6 mg/dL (0.7-1.3) Estimated GFR (Cockcroft-Gault) 157.1 Glucose Level 275 mg/dL (70-99) Calcium Level 9.0 mg/dL (8.5-10.1) Test 12/14/19 08:05 12/14/19 11:25 12/14/19 16:39 12/14/19 21:20 Glucose (Fingerstick) 265 mg/dL (70-99) 310 mg/dL (70-99) 286 mg/dL (70-99) 284 mg/dL (70-99) Vancomycin Level Trough 12.7 mcg/mL (10.0-20.0) Vancomycin Last Dose Date Unk Vancomycin Last Dose Time Unk Test 12/15/19 04:49 12/15/19 08:02 White Blood Count 10.8 x10^3/uL (4.0-11.0) Red Blood Count 4.89 x10^6/uL (4.30-5.70) Hemoglobin 14.4 g/dL (13.0-17.5) Hematocrit 42.8 % (39.0-53.0) Mean Corpuscular Volume 88 fL (79-100) Mean Corpuscular Hemoglobin 30 pg (25-35) Mean Corpuscular Hemoglobin Concent 34 g/dL (31-37) Red Cell Distribution Width 13.3 % (11.5-14.5) Platelet Count 267 x10^3/uL (140-400) Neutrophils (%) (Auto) 49 % (31-73) Lymphocytes (%) (Auto) 42 % (24-48) Monocytes (%) (Auto) 6 % (0-9) Eosinophils (%) (Auto) 2 % (0-3) Basophils (%) (Auto) 1 % (0-3) Neutrophils # (Auto) 5.3 x10^3/uL (1.8-7.7) Lymphocytes # (Auto) 4.6 x10^3/uL (1.0-4.8) Monocytes # (Auto) 0.7 x10^3/uL (0.0-1.1) Eosinophils # (Auto) 0.2 x10^3/uL (0.0-0.7) Basophils # (Auto) 0.1 x10^3/uL (0.0-0.2) Sodium Level 139 mmol/L (136-145) Potassium Level 3.8 mmol/L (3.5-5.1) Chloride Level 102 mmol/L (98-107) Carbon Dioxide Level 33 mmol/L (21-32) Anion Gap 4 (6-14) Blood Urea Nitrogen 12 mg/dL (8-26) Creatinine 0.7 mg/dL (0.7-1.3) Estimated GFR (Cockcroft-Gault) 131.5 Glucose Level 334 mg/dL (70-99) Calcium Level 8.9 mg/dL (8.5-10.1) Glucose (Fingerstick) 330 mg/dL (70-99) Laboratory Tests Test 12/14/19 11:25 12/14/19 16:39 12/14/19 21:20 12/15/19 04:49 Glucose (Fingerstick) 310 mg/dL (70-99) 286 mg/dL (70-99) 284 mg/dL (70-99) Vancomycin Level Trough 12.7 mcg/mL (10.0-20.0) Vancomycin Last Dose Date Unk Vancomycin Last Dose Time Unk White Blood Count 10.8 x10^3/uL (4.0-11.0) Red Blood Count 4.89 x10^6/uL (4.30-5.70) Hemoglobin 14.4 g/dL (13.0-17.5) Hematocrit 42.8 % (39.0-53.0) Mean Corpuscular Volume 88 fL (79-100) Mean Corpuscular Hemoglobin 30 pg (25-35) Mean Corpuscular Hemoglobin Concent 34 g/dL (31-37) Red Cell Distribution Width 13.3 % (11.5-14.5) Platelet Count 267 x10^3/uL (140-400) Neutrophils (%) (Auto) 49 % (31-73) Lymphocytes (%) (Auto) 42 % (24-48) Monocytes (%) (Auto) 6 % (0-9) Eosinophils (%) (Auto) 2 % (0-3) Basophils (%) (Auto) 1 % (0-3) Neutrophils # (Auto) 5.3 x10^3/uL (1.8-7.7) Lymphocytes # (Auto) 4.6 x10^3/uL (1.0-4.8) Monocytes # (Auto) 0.7 x10^3/uL (0.0-1.1) Eosinophils # (Auto) 0.2 x10^3/uL (0.0-0.7) Basophils # (Auto) 0.1 x10^3/uL (0.0-0.2) Sodium Level 139 mmol/L (136-145) Potassium Level 3.8 mmol/L (3.5-5.1) Chloride Level 102 mmol/L (98-107) Carbon Dioxide Level 33 mmol/L (21-32) Anion Gap 4 (6-14) Blood Urea Nitrogen 12 mg/dL (8-26) Creatinine 0.7 mg/dL (0.7-1.3) Estimated GFR (Cockcroft-Gault) 131.5 Glucose Level 334 mg/dL (70-99) Calcium Level 8.9 mg/dL (8.5-10.1) Test 12/15/19 08:02 Glucose (Fingerstick) 330 mg/dL (70-99) Microbiology 12/13/19 Anaerobic/Aerobic Culture, Resulted Pending 12/13/19 Anaerobic Culture Result 1 (LIZBETH), Resulted Pending 12/13/19 Aerobic Culture, Resulted Pending 12/13/19 Aerobic Culture Result 1 (LIZBETH), Resulted Pending 12/13/19 Gram Stain - Final, Resulted 12/13/19 Gram Stain Result 1 (LIZBETH) - Final, Resulted 12/13/19 Gram Stain Result 2 (LIZBETH) - Final, Resulted Medications Current Medications Insulin Glargine (Lantus Syringe) 20 unit QHS SQ Last administered on 12/12/19at 21:30; Start 12/12/19 at 21:00; Stop 12/13/19 at 08:29; Status DC Insulin Human Lispro (HumaLOG) 0-5 UNITS TIDWMEALS SQ Last administered on 12/12/19at 18:47; Start 12/12/19 at 18:00; Stop 12/13/19 at 08:29; Status DC Dextrose (Dextrose 50%-Water Syringe) 12.5 gm PRN Q15MIN PRN IV SEE COMMENTS; Start 12/12/19 at 17:15; Stop 12/13/19 at 12:19; Status DC Dextrose (Iv Dextrose 5%) 250 ml PRN Q15MIN PRN IV SEE COMMENTS; Start 12/12/19 at 17:15; Stop 12/13/19 at 12:19; Status DC Gabapentin (Neurontin) 300 mg TID PO Last administered on 12/15/19at 09:24; Start 12/12/19 at 21:00 Acetaminophen/ Hydrocodone Bitart (Lortab 5/325) 1 tab PRN Q6HRS PRN PO MODERATE PAIN Last administered on 12/14/19at 14:47; Start 12/12/19 at 17:15 Insulin Glargine (Lantus Syringe) 10 unit DAILY08 SQ ; Start 12/13/19 at 08:00; Stop 12/13/19 at 08:29; Status DC Lactobacillus Rhamnosus (Culturelle) 1 cap BID PO Last administered on 12/15/19at 09:24; Start 12/12/19 at 21:00 Nicotine (Nicoderm Cq 21mg) 1 patch DAILY TD Last administered on 12/15/19at 09:23; Start 12/12/19 at 17:30 Glyburide (Diabeta) 5 mg BIDWMEALS PO Last administered on 12/12/19at 18:02; Start 12/12/19 at 17:30; Stop 12/13/19 at 08:29; Status DC Metformin HCl (Glucophage) 500 mg BIDWMEALS PO Last administered on 12/15/19at 09:24; Start 12/12/19 at 17:30 Acetaminophen (Tylenol) 650 mg PRN Q4HRS PRN PO MILD PAIN / TEMP; Start 12/12/19 at 17:15 Ondansetron HCl (Zofran) 4 mg PRN Q4HRS PRN IVP NAUSEA/VOMITING; Start 12/12/19 at 17:15 Piperacillin Sod/ Tazobactam Sod 3.375 gm/Sodium Chloride 50 ml @ 100 mls/hr Q6HRS IV Last administered on 12/15/19at 05:28; Start 12/12/19 at 18:00 Piperacillin Sod/ Tazobactam Sod (Zosyn Per Pharmacy) 1 each PRN DAILY PRN MC SEE COMMENTS; Start 12/12/19 at 17:45 Vancomycin HCl (Vanco Per Pharmacy) 1 each PRN DAILY PRN MC SEE COMMENTS Last administered on 12/15/19at 01:15; Start 12/12/19 at 17:45 Vancomycin HCl 2 gm/Sodium Chloride 500 ml @ 250 mls/hr 1X ONCE IV Last administered on 12/12/19at 18:05; Start 12/12/19 at 18:00; Stop 12/12/19 at 19:59; Status DC Vancomycin HCl 1.5 gm/Sodium Chloride 500 ml @ 250 mls/hr Q8H IV Last administered on 12/13/19at 15:16; Start 12/13/19 at 05:00; Stop 12/13/19 at 21:35; Status DC Vancomycin HCl (Vancomycin Trough Level) 1 each 1X ONCE MC Last administered on 12/13/19at 21:32; Start 12/13/19 at 20:30; Stop 12/13/19 at 20:31; Status DC Insulin Glargine (Lantus Syringe) 30 unit QHS SQ Last administered on 12/14/19at 21:32; Start 12/14/19 at 21:00; Stop 12/15/19 at 08:25; Status DC Insulin Human Lispro (HumaLOG) 0-9 UNITS TIDWMEALS SQ Last administered on 12/15/19at 09:36; Start 12/13/19 at 12:00 Dextrose (Dextrose 50%-Water Syringe) 12.5 gm PRN Q15MIN PRN IV SEE COMMENTS; Start 12/13/19 at 08:30 Dextrose (Iv Dextrose 5%) 250 ml PRN Q15MIN PRN IV SEE COMMENTS; Start 12/13/19 at 08:30 Potassium Chloride (Klor-Con) 40 meq 1X ONCE PO Last administered on 12/13/19at 17:03; Start 12/13/19 at 08:30; Stop 12/13/19 at 08:33; Status DC Insulin Human Lispro (HumaLOG) 10 units TIDWMEALS SQ Last administered on 12/14/19at 17:06; Start 12/13/19 at 08:45; Stop 12/15/19 at 08:25; Status DC Insulin Glargine (Lantus Syringe) 30 unit 1X ONCE SQ Last administered on 12/13/19at 09:47; Start 12/13/19 at 08:45; Stop 12/13/19 at 08:46; Status DC Ondansetron HCl (Zofran) 4 mg PRN Q6HRS PRN IV NAUSEA/VOMITING; Start 12/13/19 at 09:15; Stop 12/14/19 at 09:14; Status DC Fentanyl Citrate (Fentanyl 2ml Vial) 25 mcg PRN Q5MIN PRN IV MILD PAIN 1-3; Start 12/13/19 at 09:15; Stop 12/14/19 at 09:14; Status DC Fentanyl Citrate (Fentanyl 2ml Vial) 50 mcg PRN Q5MIN PRN IV MODERATE TO SEVERE PAIN Last administered on 12/13/19at 15:03; Start 12/13/19 at 09:15; Stop 12/14/19 at 09:14; Status DC Morphine Sulfate (Morphine Sulfate) 1 mg PRN Q10MIN PRN IV SEVERE PAIN 7-10 Last administered on 12/13/19at 15:52; Start 12/13/19 at 09:15; Stop 12/14/19 at 09:14; Status DC Ringer's Solution 1,000 ml @ 30 mls/hr Q24H IV Last administered on 12/13/19at 11:29; Start 12/13/19 at 09:03; Stop 12/13/19 at 21:02; Status DC Hydromorphone HCl (Dilaudid) 0.5 mg PRN Q10MIN PRN IV SEV PAIN, Second choice; Start 12/13/19 at 09:15; Stop 12/14/19 at 09:14; Status DC Prochlorperazine Edisylate (Compazine) 5 mg PACU PRN PRN IV NAUSEA, MRX1 Last administered on 12/13/19at 15:02; Start 12/13/19 at 09:15; Stop 12/14/19 at 09:14; Status DC Propofol 20 ml @ As Directed STK-MED ONCE IV ; Start 12/13/19 at 11:48; Stop 12/13/19 at 11:49; Status DC Lidocaine HCl (Lidocaine Pf 2% Vial) 5 ml STK-MED ONCE .ROUTE ; Start 12/13/19 at 11:48; Stop 12/13/19 at 11:49; Status DC Dexamethasone Sodium Phosphate (Decadron) 4 mg STK-MED ONCE .ROUTE ; Start 12/13/19 at 11:48; Stop 12/13/19 at 11:49; Status DC Ondansetron HCl (Zofran) 4 mg STK-MED ONCE .ROUTE ; Start 12/13/19 at 11:48; Stop 12/13/19 at 11:49; Status DC Fentanyl Citrate (Fentanyl 2ml Vial) 100 mcg STK-MED ONCE .ROUTE ; Start 12/13/19 at 11:49; Stop 12/13/19 at 11:49; Status DC Lidocaine/ Epinephrine (LIDOCAINE 1%-EPI 1:100,000 Multi-Dose) 20 ml STK-MED ONCE .ROUTE ; Start 12/13/19 at 13:16; Stop 12/13/19 at 13:17; Status DC Propofol 20 ml @ As Directed STK-MED ONCE IV ; Start 12/13/19 at 13:50; Stop 12/13/19 at 13:50; Status DC Fentanyl Citrate (Fentanyl 2ml Vial) 100 mcg STK-MED ONCE .ROUTE ; Start 12/13/19 at 14:02; Stop 12/13/19 at 14:02; Status DC Sevoflurane (Ultane) 30 ml STK-MED ONCE IH ; Start 12/13/19 at 14:05; Stop 12/13/19 at 14:06; Status DC Insulin Human Lispro (HumaLOG VIAL for OP,RR ONLY) 0-10 units PRN Q1HR PRN SQ PER PROTOCOL Last administered on 12/13/19at 15:26; Start 12/13/19 at 14:45; Stop 12/14/19 at 14:44; Status DC Morphine Sulfate (Morphine Sulfate) 4 mg 1X ONCE IV Last administered on 12/13/19at 14:49; Start 12/13/19 at 14:45; Stop 12/13/19 at 14:49; Status DC Vancomycin HCl 1.75 gm/Sodium Chloride 500 ml @ 250 mls/hr Q8H IV Last administered on 12/15/19at 06:25; Start 12/13/19 at 22:00 Vancomycin HCl (Vancomycin Trough Level) 1 each 1X ONCE MC Last administered on 12/14/19at 21:30; Start 12/14/19 at 21:30; Stop 12/14/19 at 21:31; Status DC Morphine Sulfate (Morphine Sulfate) 1 mg PRN Q4HRS PRN IV MODERATE PAIN Last administered on 12/14/19at 14:48; Start 12/13/19 at 23:30; Stop 12/14/19 at 17:09; Status DC Acetaminophen/ Hydrocodone Bitart (Lortab 10/325) 1 tab PRN Q4HRS PRN PO SEVERE PAIN Last administered on 12/15/19at 09:25; Start 12/14/19 at 17:15 Hydromorphone HCl (Dilaudid) 1 mg PRN Q3HRS PRN IV PAIN Last administered on 12/15/19at 06:29; Start 12/14/19 at 18:45 Insulin Glargine (Lantus Syringe) 45 unit QHS SQ ; Start 12/15/19 at 21:00 Insulin Human Lispro (HumaLOG) 15 units TIDWMEALS SQ Last administered on 12/15/19at 09:34; Start 12/15/19 at 08:30 Active Scripts Active No Active Prescriptions or Reported Medications Vitals/I & O Vital Sign - Last 24 Hours 12/14/19 12/14/19 12/14/19 12/14/19 11:35 14:47 14:48 15:00 Temp 98.2 98.2 Pulse 89 Resp 18 B/P (MAP) 164/100 (121) Pulse Ox 97 O2 Delivery Room Air Room Air Room Air Room Air 12/14/19 12/14/19 12/14/19 12/14/19 15:33 15:33 17:35 18:37 Pulse Ox 94 94 O2 Delivery Room Air Room Air Room Air Room Air O2 Flow Rate 10.0 10.0 12/14/19 12/14/19 12/14/19 12/14/19 18:57 19:00 19:26 20:00 Temp 98.6 98.6 Pulse 94 Resp 20 B/P (MAP) 138/80 (99) Pulse Ox 97 O2 Delivery Room Air Room Air Room Air 12/14/19 12/14/19 12/15/19 12/15/19 22:13 23:00 01:23 03:00 Temp 98.3 97.8 98.3 97.8 Pulse 82 71 Resp 20 16 18 16 B/P (MAP) 134/81 (98) 118/64 (82) Pulse Ox 95 96 O2 Delivery Room Air Room Air 12/15/19 12/15/19 12/15/19 12/15/19 06:29 06:59 07:00 09:25 Temp 98.2 98.2 Pulse 69 Resp 18 18 14 18 B/P (MAP) 120/82 (95) Pulse Ox 94 O2 Delivery Room Air Room Air Room Air 12/15/19 10:25 Resp 16 O2 Delivery Room Air Intake and Output 12/14/19 12/14/19 12/15/19 15:00 23:00 07:00 Intake Total 550 ml 550 ml 1310 ml Balance 550 ml 550 ml 1310 ml ANGEL SHELTON MD Dec 15, 2019 11:14
--- NOTE | 2019-12-15 12:34 | NUR ---
[facility] following. Discussed with RN, pt needing zyvox upon discharge. Dr. Major wanting to discharge today. Pt does not have insurance, [facility] was on hold with zyvox assistance program for 25 minutes with no answer. [facility] looked up goodrx coupon during this time, pt could get his 14 tablet prescription from [facility] for $40.44 approx with coupon, RN confirmed pt can afford this. [facility] faxing script and good rx coupon to [facility] in [place] on [address]. [facility] ph: [phone], fax: [phone]. Script and coupon faxed, [facility] will call RN to advise script is filled and pt can discharge. RN notified.
[2019-12-15 15:00] VITALS: BP 133/78
[2019-12-15 19:00] VITALS: BP 128/80
[2019-12-15] MEDS ORDERED: INSULIN GLARGINE SYRINGE. SQ SCH (21:00)
[2019-12-15 23:00] VITALS: BP 129/81
[2019-12-16] MEDS: PIPERACILLIN/TAZOBACTAM 3.375 GM in IV NORMAL SALINE 50ML 50 ML IV SCH ×3 (00:49→12:53)
[2019-12-16 03:00] VITALS: BP 126/76
[2019-12-16] MEDS: HYDROcodone/APAP 10/325 1 TAB TABLET PO PRN ×4 (03:23→17:15)
[2019-12-16] MEDS: VANCOMYCIN 1.75 GM in IV NORMAL SALINE 500ML BAG 500 ML IV SCH ×2 (06:34→14:16)
[2019-12-16 07:00] VITALS: BP 134/94
[2019-12-16] MEDS: LACTOBACILLUS RHAMNOSUS GG 1 CAPSULE. PO SCH (08:23)
[2019-12-16] MEDS: GABAPENTIN 300 MG CAPSULE. PO SCH ×2 (08:24→12:53)
[2019-12-16] MEDS: NICOTINE 21MG PATCH. TD SCH (08:24)
[2019-12-16] MEDS: metFORMIN 500 MG TABLET PO SCH ×2 (08:24→17:15)
[2019-12-16] MEDS: INSULIN LISPRO 300 UNITS/3 ML VIAL. SQ SCH ×6 (08:37→17:21)
--- NOTE | 2019-12-16 10:22 | PDOC ---
Infectious Disease Note Subjective: Subjective pt says feels better abdo pain is improving slowly no f/c/n/v/d Vital Signs: Vital Signs Vital Signs Date Time Temp Pulse Resp B/P (MAP) Pulse Ox O2 Delivery O2 Flow Rate FiO2 12/16/19 09:24 16 Room Air 12/16/19 07:00 98.3 69 134/94 (107) 97 98.3 Physical Exam: PHYSICAL EXAM GENERAL: Alert and oriented x 3, pleasant male lying in bed comfortably, in no acute distress. HEENT: Normocephalic, atraumatic. Anicteric. No thrush. NECK: Supple, no JVD. LUNGS: Clear bilaterally. No wheezing. HEART: S1, S2. No gallops or murmurs. ABDOMEN: Soft, nontender, nondistended. No rebound or guarding. Suprapubic area dressing in place, dry intact Tenderness present. No overlying warmth. No surrounding cellulitis. EXTREMITIES: No edema, no cyanosis. DERMATOLOGIC: Warm and dry. No generalized rash. Multiple tattoos in both upper and lower extremities. No other skin wounds noted. CENTRAL NERVOUS SYSTEM: Alert and oriented x 3, grossly nonfocal. Medications: Inpatient Meds: Current Medications Medications (Trade) Dose Ordered Sig/Selnia Start Time Stop Time Status Last Admin Dose Admin Acetaminophen (Tylenol) 650 mg PRN Q4HRS PRN 12/12/19 17:15 Acetaminophen/ Hydrocodone Bitart (Lortab 10/325) 1 tab PRN Q4HRS PRN 12/14/19 17:15 12/16/19 08:24 1 TAB Acetaminophen/ Hydrocodone Bitart (Lortab 5/325) 1 tab PRN Q6HRS PRN 12/12/19 17:15 12/14/19 14:47 1 TAB Dexamethasone Sodium Phosphate (Decadron) 4 mg STK-MED ONCE 12/13/19 11:48 12/13/19 11:49 DC Dextrose (Dextrose 50%-Water Syringe) 12.5 gm PRN Q15MIN PRN 12/13/19 08:30 Dextrose (Iv Dextrose 5%) 250 ml PRN Q15MIN PRN 12/13/19 08:30 Fentanyl Citrate (Fentanyl 2ml Vial) 100 mcg STK-MED ONCE 12/13/19 14:02 12/13/19 14:02 DC Gabapentin (Neurontin) 300 mg TID 12/12/19 21:00 12/16/19 08:24 300 MG Glyburide (Diabeta) 5 mg BIDWMEALS 12/12/19 17:30 12/13/19 08:29 DC 12/12/19 18:02 5 MG Hydromorphone HCl (Dilaudid) 1 mg PRN Q3HRS PRN 12/14/19 18:45 12/15/19 22:57 1 MG Insulin Glargine (Lantus Syringe) 45 unit QHS 12/15/19 21:00 12/15/19 21:59 45 UNIT Insulin Human Lispro (HumaLOG VIAL for OP,RR ONLY) 0-10 units PRN Q1HR PRN 12/13/19 14:45 12/14/19 14:44 DC 12/13/19 15:26 6 UNIT Insulin Human Lispro (HumaLOG) 15 units TIDWMEALS 12/15/19 08:30 12/16/19 08:37 15 UNITS Lactobacillus Rhamnosus (Culturelle) 1 cap BID 12/12/19 21:00 12/16/19 08:23 1 CAP Lidocaine HCl (Lidocaine Pf 2% Vial) 5 ml STK-MED ONCE 12/13/19 11:48 12/13/19 11:49 DC Lidocaine/ Epinephrine (LIDOCAINE 1%-EPI 1:100,000 Multi-Dose) 20 ml STK-MED ONCE 12/13/19 13:16 12/13/19 13:17 DC Metformin HCl (Glucophage) 500 mg BIDWMEALS 12/12/19 17:30 12/16/19 08:24 500 MG Morphine Sulfate (Morphine Sulfate) 1 mg PRN Q4HRS PRN 12/13/19 23:30 12/14/19 17:09 DC 12/14/19 14:48 1 MG Nicotine (Nicoderm Cq 21mg) 1 patch DAILY 12/12/19 17:30 12/16/19 08:24 1 PATCH Ondansetron HCl (Zofran) 4 mg STK-MED ONCE 12/13/19 11:48 12/13/19 11:49 DC Piperacillin Sod/ Tazobactam Sod (Zosyn Per Pharmacy) 1 each PRN DAILY PRN 12/12/19 17:45 Piperacillin Sod/ Tazobactam Sod 3.375 gm/Sodium Chloride 50 ml @ 100 mls/hr Q6HRS 12/12/19 18:00 12/16/19 05:39 100 MLS/HR Potassium Chloride (Klor-Con) 40 meq 1X ONCE 12/13/19 08:30 12/13/19 08:33 DC 12/13/19 17:03 40 MEQ Prochlorperazine Edisylate (Compazine) 5 mg PACU PRN PRN 12/13/19 09:15 12/14/19 09:14 DC 12/13/19 15:02 5 MG Propofol 20 ml @ As Directed STK-MED ONCE 12/13/19 13:50 12/13/19 13:50 DC Ringer's Solution 1,000 ml @ 30 mls/hr Q24H 12/13/19 09:03 12/13/19 21:02 DC 12/13/19 11:29 30 MLS/HR Sevoflurane (Ultane) 30 ml STK-MED ONCE 12/13/19 14:05 12/13/19 14:06 DC Vancomycin HCl (Vanco Per Pharmacy) 1 each PRN DAILY PRN 12/12/19 17:45 12/15/19 14:09 1 EACH Vancomycin HCl (Vancomycin Trough Level) 1 each 1X ONCE 12/14/19 21:30 12/14/19 21:31 DC 12/14/19 21:30 1 EACH Vancomycin HCl 1.5 gm/Sodium Chloride 500 ml @ 250 mls/hr Q8H 12/13/19 05:00 12/13/19 21:35 DC 12/13/19 15:16 250 MLS/HR Vancomycin HCl 1.75 gm/Sodium Chloride 500 ml @ 250 mls/hr Q8H 12/13/19 22:00 12/16/19 06:34 250 MLS/HR Vancomycin HCl 2 gm/Sodium Chloride 500 ml @ 250 mls/hr 1X ONCE 12/12/19 18:00 12/12/19 19:59 DC 12/12/19 18:05 250 MLS/HR Labs: Lab Laboratory Tests Test 12/15/19 11:43 12/15/19 17:27 12/15/19 21:08 12/16/19 07:53 Glucose (Fingerstick) 262 mg/dL (70-99) 133 mg/dL (70-99) 325 mg/dL (70-99) 271 mg/dL (70-99) Objective: Assessment: 1. Draining abdominal wound with underlying abscess, 12/13 s/p Incision and drainage of left lower quadrant abscess cult neg so far no org seen on g/s 2. Diabetes mellitus, newly diagnosed. 3. Leukocytosis. 4. Hyperglycemia. 5. Hypokalemia. Plan: Plan of Care 1. Continue IV vancomycin and Zosyn. 2. Follow up blood cultures from [facility]. 3. f/u intraoperative cultures. 4. Follow up labs in a.m. 5. Continue supportive care. 6. Wound care per General Surgery. 7. Optimal diabetes control. 8. SW to work on linezolid for home dc,script in chart and augmentin KRYSTAL ABDALLA MD Dec 16, 2019 10:22
[2019-12-16 11:00] VITALS: BP 142/90
--- NOTE | 2019-12-16 11:03 | PDOC ---
PROGRESS NOTES Chief Complaint Chief Complaint discharge dx abd wall abscess with sinus tract formation s/p I and D 12/14/2019 NEW DM hgba1c 10 d/c planning 32 min History of Present Illness History of Present Illness 12/16 Wants to go home New DM Hgba1c 10 Comfortable injecting himself Still waiting on intra op cxs and cxs from [facility] I provided a copy to him, everything is PENDING PLAN: follow cxs INc lantus to 45 from 30 qhs Inc novolog from 10 to 15 TID Dw him NOt ready to dc until meds authorized SW to work on linezolid for home dc,script in chart and augmentin Vitals Vitals Vital Signs Date Time Temp Pulse Resp B/P (MAP) Pulse Ox O2 Delivery O2 Flow Rate FiO2 12/16/19 09:24 16 Room Air 12/16/19 07:00 98.3 69 134/94 (107) 97 98.3 Physical Exam Physical Exam GENERAL: Alert and oriented x 3, pleasant male lying in bed comfortably, in no acute distress. HEENT: Normocephalic, atraumatic. Anicteric. No thrush. NECK: Supple, no JVD. LUNGS: Clear bilaterally. No wheezing. HEART: S1, S2. No gallops or murmurs. ABDOMEN: Soft, nontender, nondistended. No rebound or guarding. Suprapubic area dressing in place, dry intact Tenderness present. No overlying warmth. No surrounding cellulitis. EXTREMITIES: No edema, no cyanosis. DERMATOLOGIC: Warm and dry. No generalized rash. Multiple tattoos in both upper and lower extremities. No other skin wounds noted. CENTRAL NERVOUS SYSTEM: Alert and oriented x 3, grossly nonfocal. General: Alert, Oriented X3, No acute distress Heart: Regular rate, Normal S1, Normal S2 Lungs: Clear Abdomen: Normal bowel sounds, Soft, Other (wound dressed ) Extremities: No clubbing, No cyanosis, No edema, Normal pulses, No t enderness/swelling Skin: No rashes Labs LABS Operative Note: Preoperative Diagnosis: Left lower quadrant abdominal abscess Postoperative Diagnosis: Same Procedure: Incision and drainage of left lower quadrant abscess Surgeon: Obey Anesthesia: Gen. EBL: 10 mL Specimen: Cultures to microbiology Drains: None Complications: None Indication: The patient is a 29-year-old male who was recently diagnosed with diabetes. He was found on examination to have a left lower quadrant abscess. He was will require incision and drainage in the operating room. Laboratory Tests Test 12/15/19 11:43 12/15/19 17:27 12/15/19 21:08 12/16/19 07:53 Glucose (Fingerstick) 262 mg/dL (70-99) 133 mg/dL (70-99) 325 mg/dL (70-99) 271 mg/dL (70-99) Comment Review of Relevant I have reviewed the following items vargas (where applicable) has been applied. Labs Laboratory Tests Test 12/14/19 11:25 12/14/19 16:39 12/14/19 21:20 12/15/19 04:49 Glucose (Fingerstick) 310 mg/dL (70-99) 286 mg/dL (70-99) 284 mg/dL (70-99) Vancomycin Level Trough 12.7 mcg/mL (10.0-20.0) Vancomycin Last Dose Date Unk Vancomycin Last Dose Time Unk White Blood Count 10.8 x10^3/uL (4.0-11.0) Red Blood Count 4.89 x10^6/uL (4.30-5.70) Hemoglobin 14.4 g/dL (13.0-17.5) Hematocrit 42.8 % (39.0-53.0) Mean Corpuscular Volume 88 fL (79-100) Mean Corpuscular Hemoglobin 30 pg (25-35) Mean Corpuscular Hemoglobin Concent 34 g/dL (31-37) Red Cell Distribution Width 13.3 % (11.5-14.5) Platelet Count 267 x10^3/uL (140-400) Neutrophils (%) (Auto) 49 % (31-73) Lymphocytes (%) (Auto) 42 % (24-48) Monocytes (%) (Auto) 6 % (0-9) Eosinophils (%) (Auto) 2 % (0-3) Basophils (%) (Auto) 1 % (0-3) Neutrophils # (Auto) 5.3 x10^3/uL (1.8-7.7) Lymphocytes # (Auto) 4.6 x10^3/uL (1.0-4.8) Monocytes # (Auto) 0.7 x10^3/uL (0.0-1.1) Eosinophils # (Auto) 0.2 x10^3/uL (0.0-0.7) Basophils # (Auto) 0.1 x10^3/uL (0.0-0.2) Sodium Level 139 mmol/L (136-145) Potassium Level 3.8 mmol/L (3.5-5.1) Chloride Level 102 mmol/L (98-107) Carbon Dioxide Level 33 mmol/L (21-32) Anion Gap 4 (6-14) Blood Urea Nitrogen 12 mg/dL (8-26) Creatinine 0.7 mg/dL (0.7-1.3) Estimated GFR (Cockcroft-Gault) 131.5 Glucose Level 334 mg/dL (70-99) Calcium Level 8.9 mg/dL (8.5-10.1) Test 12/15/19 08:02 12/15/19 11:43 12/15/19 17:27 12/15/19 21:08 Glucose (Fingerstick) 330 mg/dL (70-99) 262 mg/dL (70-99) 133 mg/dL (70-99) 325 mg/dL (70-99) Test 12/16/19 07:53 Glucose (Fingerstick) 271 mg/dL (70-99) Laboratory Tests Test 12/15/19 11:43 12/15/19 17:27 12/15/19 21:08 12/16/19 07:53 Glucose (Fingerstick) 262 mg/dL (70-99) 133 mg/dL (70-99) 325 mg/dL (70-99) 271 mg/dL (70-99) Microbiology 12/13/19 Anaerobic/Aerobic Culture, Resulted Pending 12/13/19 Anaerobic Culture Result 1 (LIZBETH), Resulted Pending 12/13/19 Aerobic Culture - Preliminary, Resulted 12/13/19 Aerobic Culture Result 1 (LIZBETH) - Preliminary, Resulted 12/13/19 Gram Stain - Final, Resulted 12/13/19 Gram Stain Result 1 (LIZBETH) - Final, Resulted 12/13/19 Gram Stain Result 2 (LIZBETH) - Final, Resulted Medications Current Medications Insulin Glargine (Lantus Syringe) 20 unit QHS SQ Last administered on 12/12/19at 21:30; Start 12/12/19 at 21:00; Stop 12/13/19 at 08:29; Status DC Insulin Human Lispro (HumaLOG) 0-5 UNITS TIDWMEALS SQ Last administered on 12/12/19at 18:47; Start 12/12/19 at 18:00; Stop 12/13/19 at 08:29; Status DC Dextrose (Dextrose 50%-Water Syringe) 12.5 gm PRN Q15MIN PRN IV SEE COMMENTS; Start 12/12/19 at 17:15; Stop 12/13/19 at 12:19; Status DC Dextrose (Iv Dextrose 5%) 250 ml PRN Q15MIN PRN IV SEE COMMENTS; Start 12/12/19 at 17:15; Stop 12/13/19 at 12:19; Status DC Gabapentin (Neurontin) 300 mg TID PO Last administered on 12/16/19at 08:24; Start 12/12/19 at 21:00 Acetaminophen/ Hydrocodone Bitart (Lortab 5/325) 1 tab PRN Q6HRS PRN PO MODERATE PAIN Last administered on 12/14/19at 14:47; Start 12/12/19 at 17:15 Insulin Glargine (Lantus Syringe) 10 unit DAILY08 SQ ; Start 12/13/19 at 08:00; Stop 12/13/19 at 08:29; Status DC Lactobacillus Rhamnosus (Culturelle) 1 cap BID PO Last administered on 12/16/19at 08:23; Start 12/12/19 at 21:00 Nicotine (Nicoderm Cq 21mg) 1 patch DAILY TD Last administered on 12/16/19at 08:24; Start 12/12/19 at 17:30 Glyburide (Diabeta) 5 mg BIDWMEALS PO Last administered on 12/12/19at 18:02; Start 12/12/19 at 17:30; Stop 12/13/19 at 08:29; Status DC Metformin HCl (Glucophage) 500 mg BIDWMEALS PO Last administered on 12/16/19at 08:24; Start 12/12/19 at 17:30 Acetaminophen (Tylenol) 650 mg PRN Q4HRS PRN PO MILD PAIN / TEMP; Start 12/12/19 at 17:15 Ondansetron HCl (Zofran) 4 mg PRN Q4HRS PRN IVP NAUSEA/VOMITING; Start 12/12/19 at 17:15 Piperacillin Sod/ Tazobactam Sod 3.375 gm/Sodium Chloride 50 ml @ 100 mls/hr Q6HRS IV Last administered on 12/16/19at 05:39; Start 12/12/19 at 18:00 Piperacillin Sod/ Tazobactam Sod (Zosyn Per Pharmacy) 1 each PRN DAILY PRN MC SEE COMMENTS; Start 12/12/19 at 17:45 Vancomycin HCl (Vanco Per Pharmacy) 1 each PRN DAILY PRN MC SEE COMMENTS Last administered on 12/15/19at 14:09; Start 12/12/19 at 17:45 Vancomycin HCl 2 gm/Sodium Chloride 500 ml @ 250 mls/hr 1X ONCE IV Last administered on 12/12/19at 18:05; Start 12/12/19 at 18:00; Stop 12/12/19 at 19:59; Status DC Vancomycin HCl 1.5 gm/Sodium Chloride 500 ml @ 250 mls/hr Q8H IV Last administered on 12/13/19at 15:16; Start 12/13/19 at 05:00; Stop 12/13/19 at 21:35; Status DC Vancomycin HCl (Vancomycin Trough Level) 1 each 1X ONCE MC Last administered on 12/13/19at 21:32; Start 12/13/19 at 20:30; Stop 12/13/19 at 20:31; Status DC Insulin Glargine (Lantus Syringe) 30 unit QHS SQ Last administered on 12/14/19at 21:32; Start 12/14/19 at 21:00; Stop 12/15/19 at 08:25; Status DC Insulin Human Lispro (HumaLOG) 0-9 UNITS TIDWMEALS SQ Last administered on 12/16/19at 08:39; Start 12/13/19 at 12:00 Dextrose (Dextrose 50%-Water Syringe) 12.5 gm PRN Q15MIN PRN IV SEE COMMENTS; Start 12/13/19 at 08:30 Dextrose (Iv Dextrose 5%) 250 ml PRN Q15MIN PRN IV SEE COMMENTS; Start 12/13/19 at 08:30 Potassium Chloride (Klor-Con) 40 meq 1X ONCE PO Last administered on 12/13/19at 17:03; Start 12/13/19 at 08:30; Stop 12/13/19 at 08:33; Status DC Insulin Human Lispro (HumaLOG) 10 units TIDWMEALS SQ Last administered on 12/14/19at 17:06; Start 12/13/19 at 08:45; Stop 12/15/19 at 08:25; Status DC Insulin Glargine (Lantus Syringe) 30 unit 1X ONCE SQ Last administered on 12/13/19at 09:47; Start 12/13/19 at 08:45; Stop 12/13/19 at 08:46; Status DC Ondansetron HCl (Zofran) 4 mg PRN Q6HRS PRN IV NAUSEA/VOMITING; Start 12/13/19 at 09:15; Stop 12/14/19 at 09:14; Status DC Fentanyl Citrate (Fentanyl 2ml Vial) 25 mcg PRN Q5MIN PRN IV MILD PAIN 1-3; Start 12/13/19 at 09:15; Stop 12/14/19 at 09:14; Status DC Fentanyl Citrate (Fentanyl 2ml Vial) 50 mcg PRN Q5MIN PRN IV MODERATE TO SEVERE PAIN Last administered on 12/13/19at 15:03; Start 12/13/19 at 09:15; Stop 12/14/19 at 09:14; Status DC Morphine Sulfate (Morphine Sulfate) 1 mg PRN Q10MIN PRN IV SEVERE PAIN 7-10 Last administered on 12/13/19at 15:52; Start 12/13/19 at 09:15; Stop 12/14/19 at 09:14; Status DC Ringer's Solution 1,000 ml @ 30 mls/hr Q24H IV Last administered on 12/13/19at 11:29; Start 12/13/19 at 09:03; Stop 12/13/19 at 21:02; Status DC Hydromorphone HCl (Dilaudid) 0.5 mg PRN Q10MIN PRN IV SEV PAIN, Second choice; Start 12/13/19 at 09:15; Stop 12/14/19 at 09:14; Status DC Prochlorperazine Edisylate (Compazine) 5 mg PACU PRN PRN IV NAUSEA, MRX1 Last administered on 12/13/19at 15:02; Start 12/13/19 at 09:15; Stop 12/14/19 at 09:14; Status DC Propofol 20 ml @ As Directed STK-MED ONCE IV ; Start 12/13/19 at 11:48; Stop 12/13/19 at 11:49; Status DC Lidocaine HCl (Lidocaine Pf 2% Vial) 5 ml STK-MED ONCE .ROUTE ; Start 12/13/19 at 11:48; Stop 12/13/19 at 11:49; Status DC Dexamethasone Sodium Phosphate (Decadron) 4 mg STK-MED ONCE .ROUTE ; Start 12/13/19 at 11:48; Stop 12/13/19 at 11:49; Status DC Ondansetron HCl (Zofran) 4 mg STK-MED ONCE .ROUTE ; Start 12/13/19 at 11:48; Stop 12/13/19 at 11:49; Status DC Fentanyl Citrate (Fentanyl 2ml Vial) 100 mcg STK-MED ONCE .ROUTE ; Start 12/13/19 at 11:49; Stop 12/13/19 at 11:49; Status DC Lidocaine/ Epinephrine (LIDOCAINE 1%-EPI 1:100,000 Multi-Dose) 20 ml STK-MED ONCE .ROUTE ; Start 12/13/19 at 13:16; Stop 12/13/19 at 13:17; Status DC Propofol 20 ml @ As Directed STK-MED ONCE IV ; Start 12/13/19 at 13:50; Stop 12/13/19 at 13:50; Status DC Fentanyl Citrate (Fentanyl 2ml Vial) 100 mcg STK-MED ONCE .ROUTE ; Start 12/13/19 at 14:02; Stop 12/13/19 at 14:02; Status DC Sevoflurane (Ultane) 30 ml STK-MED ONCE IH ; Start 12/13/19 at 14:05; Stop 12/13/19 at 14:06; Status DC Insulin Human Lispro (HumaLOG VIAL for OP,RR ONLY) 0-10 units PRN Q1HR PRN SQ PER PROTOCOL Last administered on 12/13/19at 15:26; Start 12/13/19 at 14:45; Stop 12/14/19 at 14:44; Status DC Morphine Sulfate (Morphine Sulfate) 4 mg 1X ONCE IV Last administered on 12/13/19at 14:49; Start 12/13/19 at 14:45; Stop 12/13/19 at 14:49; Status DC Vancomycin HCl 1.75 gm/Sodium Chloride 500 ml @ 250 mls/hr Q8H IV Last administered on 12/16/19at 06:34; Start 12/13/19 at 22:00 Vancomycin HCl (Vancomycin Trough Level) 1 each 1X ONCE MC Last administered on 12/14/19at 21:30; Start 12/14/19 at 21:30; Stop 12/14/19 at 21:31; Status DC Morphine Sulfate (Morphine Sulfate) 1 mg PRN Q4HRS PRN IV MODERATE PAIN Last administered on 12/14/19at 14:48; Start 12/13/19 at 23:30; Stop 12/14/19 at 17:09; Status DC Acetaminophen/ Hydrocodone Bitart (Lortab 10/325) 1 tab PRN Q4HRS PRN PO SEVERE PAIN Last administered on 12/16/19at 08:24; Start 12/14/19 at 17:15 Hydromorphone HCl (Dilaudid) 1 mg PRN Q3HRS PRN IV PAIN Last administered on at 22:57; Start 12/14/19 at 18:45 Insulin Glargine (Lantus Syringe) 45 unit QHS SQ Last administered on 12/15/19at 21:59; Start 12/15/19 at 21:00 Insulin Human Lispro (HumaLOG) 15 units TIDWMEALS SQ Last administered on 12/16/19at 08:37; Start 12/15/19 at 08:30 Active Scripts Active No Active Prescriptions or Reported Medications Vitals/I & O Vital Sign - Last 24 Hours 12/15/19 12/15/19 12/15/19 12/15/19 13:14 13:44 15:00 17:28 Temp 98.3 98.3 Pulse 79 Resp 24 14 14 16 B/P (MAP) 133/78 (96) Pulse Ox 97 O2 Delivery Room Air Room Air Room Air Room Air 12/15/19 12/15/19 12/15/19 12/15/19 19:00 19:55 20:06 20:25 Temp 98.1 98.1 Pulse 83 Resp 16 20 B/P (MAP) 128/80 (96) Pulse Ox 97 O2 Delivery Room Air Room Air Room Air 112/15/19 12/16/19 12/16/19 22:57 23:00 03:00 03:23 Temp 98.1 97.7 98.1 97.7 Pulse 74 62 Resp 18 16 16 20 B/P (MAP) 129/81 (97) 126/76 (93) Pulse Ox 94 96 O2 Delivery Room Air Room Air 12/16/19 12/16/19 12/16/19 12/16/19 04:23 07:00 08:24 09:24 Temp 98.3 98.3 Pulse 69 Resp 20 14 18 16 B/P (MAP) 134/94 (107) Pulse Ox 97 O2 Delivery Room Air Room Air Room Air Room Air Intake and Output 12/15/19 12/15/19 12/16/19 15:00 23:00 07:00 Intake Total 240 ml 910 ml Balance 240 ml 910 ml ANKITA COLLINS MD Dec 16, 2019 11:03
[2019-12-16] MEDS: VANCOMYCIN PER PHARMACY MC PRN (12:00)
--- NOTE | 2019-12-16 13:47 | PDOC3 ---
Discharge Summary Date of Admission: Dec 13, 2019 Date of Discharge: Dec 16, 2019 Follow-Up: 3-5 days Admitting Diagnosis comment: discharge dx abd wall abscess with sinus tract formation s/p I and D 12/14/2019 NEW DM hgba1c 10 d/c planning 32 min History of Present Illness History of Present Illness 12/16 Wants to go home New DM Hgba1c 10 Comfortable injecting himself PLAN: follow cxs INc lantus to 45 from 30 qhs Inc novolog from 10 to 15 TID Dw him NOt ready to dc until meds authorized SW to work on linezolid for home dc,script in chart and augmentin Vitals Vitals Vital Signs Date Time Temp Pulse Resp B/P (MAP) Pulse Ox O2 Delivery O2 Flow Rate FiO2 12/16/19 09:24 16 Room Air 12/16/19 07:00 98.3 69 134/94 (107) 97 98.3 Physical Exam Physical Exam GENERAL: Alert and oriented x 3, pleasant male lying in bed comfortably, in no acute distress. HEENT: Normocephalic, atraumatic. Anicteric. No thrush. NECK: Supple, no JVD. LUNGS: Clear bilaterally. No wheezing. HEART: S1, S2. No gallops or murmurs. ABDOMEN: Soft, nontender, nondistended. No rebound or guarding. Suprapubic area dressing in place, dry intact Tenderness present. No overlying warmth. No surrounding cellulitis. EXTREMITIES: No edema, no cyanosis. DERMATOLOGIC: Warm and dry. No generalized rash. Multiple tattoos in both upper and lower extremities. No other skin wounds noted. CENTRAL NERVOUS SYSTEM: Alert and oriented x 3, grossly nonfocal. General: Alert, Oriented X3, No acute distress Heart: Regular rate, Normal S1, Normal S2 Lungs: Clear Abdomen: Normal bowel sounds, Soft, Other (wound dressed ) Extremities: No clubbing, No cyanosis, No edema, Normal pulses, No tenderness/swelling Skin: No rashes Brief Hospital Course Mr. Vicente is a 29 old [sex] who presented with [abdominal wall abscess ] CONDITION AT DISCHARGE: Improved Discharge Medications Current Medications Insulin Glargine (Lantus Syringe) 20 unit QHS SQ Last administered on 12/12/19at 21:30; Start 12/12/19 at 21:00; Stop 12/13/19 at 08:29; Status DC Insulin Human Lispro (HumaLOG) 0-5 UNITS TIDWMEALS SQ Last administered on 12/12/19at 18:47; Start 12/12/19 at 18:00; Stop 12/13/19 at 08:29; Status DC Dextrose (Dextrose 50%-Water Syringe) 12.5 gm PRN Q15MIN PRN IV SEE COMMENTS; Start 12/12/19 at 17:15; Stop 12/13/19 at 12:19; Status DC Dextrose (Iv Dextrose 5%) 250 ml PRN Q15MIN PRN IV SEE COMMENTS; Start 12/12/19 at 17:15; Stop 12/13/19 at 12:19; Status DC Gabapentin (Neurontin) 300 mg TID PO Last administered on 12/16/19at 12:53; Start 12/12/19 at 21:00 Acetaminophen/ Hydrocodone Bitart (Lortab 5/325) 1 tab PRN Q6HRS PRN PO MODERATE PAIN Last administered on 12/14/19at 14:47; Start 12/12/19 at 17:15 Insulin Glargine (Lantus Syringe) 10 unit DAILY08 SQ ; Start 12/13/19 at 08:00; Stop 12/13/19 at 08:29; Status DC Lactobacillus Rhamnosus (Culturelle) 1 cap BID PO Last administered on 12/16/19at 08:23; Start 12/12/19 at 21:00 Nicotine (Nicoderm Cq 21mg) 1 patch DAILY TD Last administered on 12/16/19at 08:24; Start 12/12/19 at 17:30 Glyburide (Diabeta) 5 mg BIDWMEALS PO Last administered on 12/12/19at 18:02; Start 12/12/19 at 17:30; Stop 12/13/19 at 08:29; Status DC Metformin HCl (Glucophage) 500 mg BIDWMEALS PO Last administered on 12/16/19at 08:24; Start 12/12/19 at 17:30 Acetaminophen (Tylenol) 650 mg PRN Q4HRS PRN PO MILD PAIN / TEMP; Start 12/12/19 at 17:15 Ondansetron HCl (Zofran) 4 mg PRN Q4HRS PRN IVP NAUSEA/VOMITING; Start 12/12/19 at 17:15 Piperacillin Sod/ Tazobactam Sod 3.375 gm/Sodium Chloride 50 ml @ 100 mls/hr Q6HRS IV Last administered on 12/16/19at 12:53; Start 12/12/19 at 18:00 Piperacillin Sod/ Tazobactam Sod (Zosyn Per Pharmacy) 1 each PRN DAILY PRN MC SEE COMMENTS; Start 12/12/19 at 17:45 Vancomycin HCl (Vanco Per Pharmacy) 1 each PRN DAILY PRN MC SEE COMMENTS Last administered on 12/16/19at 12:00; Start 12/12/19 at 17:45 Vancomycin HCl 2 gm/Sodium Chloride 500 ml @ 250 mls/hr 1X ONCE IV Last administered on 12/12/19at 18:05; Start 12/12/19 at 18:00; Stop 12/12/19 at 19:59; Status DC Vancomycin HCl 1.5 gm/Sodium Chloride 500 ml @ 250 mls/hr Q8H IV Last administered on 12/13/19at 15:16; Start 12/13/19 at 05:00; Stop 12/13/19 at 21:35; Status DC Vancomycin HCl (Vancomycin Trough Level) 1 each 1X ONCE MC Last administered on 12/13/19at 21:32; Start 12/13/19 at 20:30; Stop 12/13/19 at 20:31; Status DC Insulin Glargine (Lantus Syringe) 30 unit QHS SQ Last administered on 12/14/19at 21:32; Start 12/14/19 at 21:00; Stop 12/15/19 at 08:25; Status DC Insulin Human Lispro (HumaLOG) 0-9 UNITS TIDWMEALS SQ Last administered on 12/16/19at 12:57; Start 12/13/19 at 12:00 Dextrose (Dextrose 50%-Water Syringe) 12.5 gm PRN Q15MIN PRN IV SEE COMMENTS; Start 12/13/19 at 08:30 Dextrose (Iv Dextrose 5%) 250 ml PRN Q15MIN PRN IV SEE COMMENTS; Start 12/13/19 at 08:30 Potassium Chloride (Klor-Con) 40 meq 1X ONCE PO Last administered on 12/13/19at 17:03; Start 12/13/19 at 08:30; Stop 12/13/19 at 08:33; Status DC Insulin Human Lispro (HumaLOG) 10 units TIDWMEALS SQ Last administered on 12/14/19at 17:06; Start 12/13/19 at 08:45; Stop 12/15/19 at 08:25; Status DC Insulin Glargine (Lantus Syringe) 30 unit 1X ONCE SQ Last administered on 12/13/19at 09:47; Start 12/13/19 at 08:45; Stop 12/13/19 at 08:46; Status DC Ondansetron HCl (Zofran) 4 mg PRN Q6HRS PRN IV NAUSEA/VOMITING; Start 12/13/19 at 09:15; Stop 12/14/19 at 09:14; Status DC Fentanyl Citrate (Fentanyl 2ml Vial) 25 mcg PRN Q5MIN PRN IV MILD PAIN 1-3; Start 12/13/19 at 09:15; Stop 12/14/19 at 09:14; Status DC Fentanyl Citrate (Fentanyl 2ml Vial) 50 mcg PRN Q5MIN PRN IV MODERATE TO SEVERE PAIN Last administered on 12/13/19at 15:03; Start 12/13/19 at 09:15; Stop 12/14/19 at 09:14; Status DC Morphine Sulfate (Morphine Sulfate) 1 mg PRN Q10MIN PRN IV SEVERE PAIN 7-10 Last administered on 12/13/19at 15:52; Start 12/13/19 at 09:15; Stop 12/14/19 at 09:14; Status DC Ringer's Solution 1,000 ml @ 30 mls/hr Q24H IV Last administered on 12/13/19at 11:29; Start 12/13/19 at 09:03; Stop 12/13/19 at 21:02; Status DC Hydromorphone HCl (Dilaudid) 0.5 mg PRN Q10MIN PRN IV SEV PAIN, Second choice; Start 12/13/19 at 09:15; Stop 12/14/19 at 09:14; Status DC Prochlorperazine Edisylate (Compazine) 5 mg PACU PRN PRN IV NAUSEA, MRX1 Last administered on 12/13/19at 15:02; Start 12/13/19 at 09:15; Stop 12/14/19 at 09:14; Status DC Propofol 20 ml @ As Directed STK-MED ONCE IV ; Start 12/13/19 at 11:48; Stop 12/13/19 at 11:49; Status DC Lidocaine HCl (Lidocaine Pf 2% Vial) 5 ml STK-MED ONCE .ROUTE ; Start 12/13/19 at 11:48; Stop 12/13/19 at 11:49; Status DC Dexamethasone Sodium Phosphate (Decadron) 4 mg STK-MED ONCE .ROUTE ; Start 12/13/19 at 11:48; Stop 12/13/19 at 11:49; Status DC Ondansetron HCl (Zofran) 4 mg STK-MED ONCE .ROUTE ; Start 12/13/19 at 11:48; Stop 12/13/19 at 11:49; Status DC Fentanyl Citrate (Fentanyl 2ml Vial) 100 mcg STK-MED ONCE .ROUTE ; Start 12/13/19 at 11:49; Stop 12/13/19 at 11:49; Status DC Lidocaine/ Epinephrine (LIDOCAINE 1%-EPI 1:100,000 Multi-Dose) 20 ml STK-MED ONCE .ROUTE ; Start 12/13/19 at 13:16; Stop 12/13/19 at 13:17; Status DC Propofol 20 ml @ As Directed STK-MED ONCE IV ; Start 12/13/19 at 13:50; Stop 12/13/19 at 13:50; Status DC Fentanyl Citrate (Fentanyl 2ml Vial) 100 mcg STK-MED ONCE .ROUTE ; Start 12/13/19 at 14:02; Stop 12/13/19 at 14:02; Status DC Sevoflurane (Ultane) 30 ml STK-MED ONCE IH ; Start 12/13/19 at 14:05; Stop 12/13/19 at 14:06; Status DC Insulin Human Lispro (HumaLOG VIAL for OP,RR ONLY) 0-10 units PRN Q1HR PRN SQ PER PROTOCOL Last administered on 12/13/19at 15:26; Start 12/13/19 at 14:45; Stop 12/14/19 at 14:44; Status DC Morphine Sulfate (Morphine Sulfate) 4 mg 1X ONCE IV Last administered on 12/13/19at 14:49; Start 12/13/19 at 14:45; Stop 12/13/19 at 14:49; Status DC Vancomycin HCl 1.75 gm/Sodium Chloride 500 ml @ 250 mls/hr Q8H IV Last administered on 12/16/19at 06:34; Start 12/13/19 at 22:00 Vancomycin HCl (Vancomycin Trough Level) 1 each 1X ONCE MC Last administered on 12/14/19at 21:30; Start 12/14/19 at 21:30; Stop 12/14/19 at 21:31; Status DC Morphine Sulfate (Morphine Sulfate) 1 mg PRN Q4HRS PRN IV MODERATE PAIN Last administered on 12/14/19at 14:48; Start 12/13/19 at 23:30; Stop 12/14/19 at 17:09; Status DC Acetaminophen/ Hydrocodone Bitart (Lortab 10/325) 1 tab PRN Q4HRS PRN PO SEVERE PAIN Last administered on 12/16/19at 12:53; Start 12/14/19 at 17:15 Hydromorphone HCl (Dilaudid) 1 mg PRN Q3HRS PRN IV PAIN Last administered on 12/15/19at 22:57; Start 12/14/19 at 18:45 Insulin Glargine (Lantus Syringe) 45 unit QHS SQ Last administered on 12/15/19at 21:59; Start 12/15/19 at 21:00 Insulin Human Lispro (HumaLOG) 15 units TIDWMEALS SQ Last administered on at 12:58; Start 12/15/19 at 08:30 Active Scripts Active No Active Prescriptions or Reported Medications Vital Signs Vital Signs Date Time Temp Pulse Resp B/P (MAP) Pulse Ox O2 Delivery O2 Flow Rate FiO2 12/16/19 12:53 18 Room Air 12/16/19 11:00 98.1 78 142/90 (107) 98 98.1 Labs Laboratory Tests Test 12/14/19 16:39 12/14/19 21:20 12/15/19 04:49 12/15/19 08:02 Glucose (Fingerstick) 286 mg/dL (70-99) 284 mg/dL (70-99) 330 mg/dL (70-99) Vancomycin Level Trough 12.7 mcg/mL (10.0-20.0) Vancomycin Last Dose Date Unk Vancomycin Last Dose Time Unk White Blood Count 10.8 x10^3/uL (4.0-11.0) Red Blood Count 4.89 x10^6/uL (4.30-5.70) Hemoglobin 14.4 g/dL (13.0-17.5) Hematocrit 42.8 % (39.0-53.0) Mean Corpuscular Volume 88 fL (79-100) Mean Corpuscular Hemoglobin 30 pg (25-35) Mean Corpuscular Hemoglobin Concent 34 g/dL (31-37) Red Cell Distribution Width 13.3 % (11.5-14.5) Platelet Count 267 x10^3/uL (140-400) Neutrophils (%) (Auto) 49 % (31-73) Lymphocytes (%) (Auto) 42 % (24-48) Monocytes (%) (Auto) 6 % (0-9) Eosinophils (%) (Auto) 2 % (0-3) Basophils (%) (Auto) 1 % (0-3) Neutrophils # (Auto) 5.3 x10^3/uL (1.8-7.7) Lymphocytes # (Auto) 4.6 x10^3/uL (1.0-4.8) Monocytes # (Auto) 0.7 x10^3/uL (0.0-1.1) Eosinophils # (Auto) 0.2 x10^3/uL (0.0-0.7) Basophils # (Auto) 0.1 x10^3/uL (0.0-0.2) Sodium Level 139 mmol/L (136-145) Potassium Level 3.8 mmol/L (3.5-5.1) Chloride Level 102 mmol/L (98-107) Carbon Dioxide Level 33 mmol/L (21-32) Anion Gap 4 (6-14) Blood Urea Nitrogen 12 mg/dL (8-26) Creatinine 0.7 mg/dL (0.7-1.3) Estimated GFR (Cockcroft-Gault) 131.5 Glucose Level 334 mg/dL (70-99) Calcium Level 8.9 mg/dL (8.5-10.1) Test 12/15/19 11:43 12/15/19 17:27 12/15/19 21:08 12/16/19 07:53 Glucose (Fingerstick) 262 mg/dL (70-99) 133 mg/dL (70-99) 325 mg/dL (70-99) 271 mg/dL (70-99) Test 12/16/19 12:00 Glucose (Fingerstick) 178 mg/dL (70-99) Laboratory Tests Test 12/15/19 17:27 12/15/19 21:08 12/16/19 07:53 12/16/19 12:00 Glucose (Fingerstick) 133 mg/dL (70-99) 325 mg/dL (70-99) 271 mg/dL (70-99) 178 mg/dL (70-99) Allergies Allergies Coded Allergies Type Severity Reaction Last Updated Verified No Known Drug Allergies 12/13/19 No Disposition/Orders: D/C to Home Patient Instructions d/c planning 32 min ANKITA COLLINS MD Dec 16, 2019 13:47
--- NOTE | 2019-12-16 13:51 | NUR ---
JOVAN following. Discussed with RN, pt reported yesterday he could not afford the total cost of his medications so did not discharge and did not fill the prescription at [facility]. Pt completed the [employer] assistance program today with pt, pt was approved, the zyvox will be shipped to his house tomorrow (12/17/2019). Jovan provided [employer] $4 and $10 list, good rx coupon card and [facility] information for diabetes. Pt okay to discharge from social work standpoint. Discussed with RN and Dr. Waters.
[2019-12-16] MEDS ORDERED: HYDR-2769 PO (13:53)
[2019-12-16] MEDS ORDERED: INSU100I11 SQ (13:53)
[2019-12-16] MEDS ORDERED: GABA300C18 PO (13:53)
[2019-12-16] MEDS ORDERED: INSU100V8 SQ (13:53)
[2019-12-16] MEDS ORDERED: METF500T PO (13:53)
[2019-12-16] MEDS ORDERED: LACT1CAP19 PO (13:53)
--- NOTE | 2019-12-16 13:54 | DISCH ---
DISCHARGE INSTRUCTIONS Condition on Discharge Condition on Discharge: Stable Activity After Discharge Activity Instructions for Disc: Activity as tolerated Bathing Instructions: No Tub Bath until see Lifting Instructions after Dis: No heavy lifting, No pulling or pushing Driving Instructions after Dis: Do not drive, Do not drive today Weight Bearing Status after Di: As tolerated Diet after Discharge Diet after Discharge: Regular, Diabetic No Calorie Level Liquid Texture: Thin Liquid Checks after Discharge Checks after discharge: Check blood press - daily, Check blood sugar, ac/hs, Check your Temp as needed Contacting the DRJohn after DC Call your doctor for: If your condition worsens Warfarin Follow-Up Warfarin Follow UP: see pcp next week ANKITA COLLINS MD Dec 16, 2019 13:54
[2019-12-16 15:00] VITALS: BP 130/81
[2019-12-16] MEDS: HYDROmorphone 2 MG/ML VIAL IV PRN (16:28)
--- NOTE | 2019-12-16 17:22 | NUR ---
Discharge Note: STEVEN MIRELES IV [facility] Discharge instructions and discharge home medications reviewed with Patient and a copy given. All questions have been answered and understanding verbalized. The following instructions and handouts were given: DM ed Discontinued lines and drains: peripheral line Patient discharged to Home or Self Care with Self via Ambulated
[2019-12-16] MEDS ORDERED: HYDR-3164 PO (19:48)
== END 2019-12-16 17:30 | disposition home or self-care (01) | DRG 581 ==
LOC: 5 SOUTH 16:28
PROVIDERS: ADMIT Internal Medicine; ATTEND Internal Medicine
PROC: 0W9F0ZZ Drainage of Abdominal Wall, Open Approach (ICD-10-PCS; principal; 2019-12-12)
DX: L02.211 Cutaneous abscess of abdominal wall (principal); E87.6 Hypokalemia; F17.210 Nicotine dependence, cigarettes, uncomplicated; Z82.49 Family history of ischemic heart disease and other diseases of the circulatory system; E11.9 Type 2 diabetes mellitus without complications
CPT/HCPCS: 36415; 80048; 80053; 80202; 82962; 83036; 85025; 85610; 85651; 87071; 87075; A7015; J0780; J1100; J1170; J1815; J2001; J2270; J2405; J2543; J2704; J3010; J3370; J3490; J7040; J7120; A4461; G0378